=== PATIENT | male | born 1940 | race African-American/Black ===

== ENCOUNTER 2024-06-28 14:37 | Inpatient (IN) ==
[2024-06-28] MEDS: OPTIRAY 320 125ml IV ONE (14:41)
--- NOTE | 2024-06-28 14:44 | Emergency Department Note ---
Impression & Plan Acute hypoxemic respiratory failure, Pneumonia, Elevated troponin, Stroke-like symptom ED Provider Note NAME: BABS [id number] LUCILA AGE: 84 SEX: M : 1940 ARRIVES VIA: Ambulance INFORMANT: EMS and nursing report, prior records ED PROVIDER(S): Lino Coombs MD CHIEF COMPLAINT: Change in mentation, strokelike symptoms MEDICAL DECISION MAKING: Patient presents with the above. Patient is not a TNK candidate as the patient is anticoagulated. The patient is unable to follow basic commands does appear to have strokelike symptoms. Patient was immediately taken to CT. No obvious ICH on Noncon. We did speak with Dr. You with telestroke who stated that he agreed with current management but not a TNK candidate in light of the patient's Eliquis use. Patient was noted to be profoundly hypotensive at the time of arrival and was ordered 2 L of IV fluids along with sepsis protocols. The patient did have a recent amputation of the right great toe. The site does not look acutely infected. Patient was ordered antibiotics plan reviewed the patient's chest x- ray which does show possible asymmetric pulmonary edema versus pneumonia. The patient did have a pneumonia at the time of his admission at [place]. Patient was hypoxic reportedly requiring nonrebreather. Did transition the patient to BiPAP which he would not tolerate and subsequently patient was placed on high flow nasal cannula. Patient was reassessed numerous times. Patient was maintaining his airway. Was able to talk to the patient eventually and when asked the patient states that he was feeling good. Unclear is whether or not he actually felt good or if the patient is confused. The patient's white count was 11 with a hemoglobin of 10. The patient's platelet count was unremarkable. Kidney function unremarkable apart. VBG without signs of hypercarbia. Initial troponin 29.7 calcium low at 8 patient was ordered 1 g for replacement. Procalcitonin is not elevated. Patient's BioFire negative. Initial lactate of 1.2. Patient did have improvement his blood pressures and was tolerating the high flow nasal cannula. I did speak with the on-call hospitalist service Dr. Hernandez our the patient was admitted to medicine service. Critical Care: I have personally spent 95 minutes of critical care time in direct management of this patient. This includes bedside care, interpretation of diagnostic studies, and testing, discussion with consultants, patient, and family members, and other require inpatient management activities. This 95 minutes is in excess of all separately billable procedures. Discussion w/ other healthcare providers: Dr. Gardiner inpatient medicine service Dr. You teleroke neurology Prior /Outside records reviewed: I reviewed part of an admission summary from Dr. Sveerino from June 20. Prior history reported the patient is from [facility] and transferred to [facility] on June 04 as he developed a sore on his foot. Patient was placed on oral antibiotics started on Zosyn upon admission questionable posterior osteomyelitis MRI was on hold due to concerns for pacemaker and unsure as to pacemaker compatibility. Patient was also treated with vancomycin. 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 Pacemaker not compatible with MRI. Deep wound cultures grew out Klebsiella Proteus and Staph epidermidis blood cultures were negative. Patient reportedly had worsening hypoxia and heart failure noted that required high flow nasal cannula. CT angiography of the chest around this time and between June 08 and June 10 noted to have groundglass opacities likely multifocal pneumonia possible pulmonary edema no PEs. Per review of the medication list the patient is on apixaban 5 mg twice daily. Required BiPAP on June 12 Lasix placed on hold transfer to the ICU and required intubation due to concern for worsening respiratory failure and possible aspiration pneumonia. Patient was eventually extubated and transferred to the ICU on June 18. Known prior history of A-fib heart block hypertension hyperlipidemia type 2 diabetes and pacemaker. Per review the patient has 4-5 overall strength at the time of admission poor recall and oriented only to person. Differential diagnosis: Pneumonia, pneumothorax, ICH, infection, dehydration, metabolic abnormality, hypo/hyperglycemia, electrolyte imbalance, anemia, UTI, pneumonia, thyroid dysfunction among others were considered. Diagnostics, as interpreted by me: ECG: V paced rhythm rate of 100., Wide QRS. Significant motion artifact noted. Cardiac monitoring: An order was placed for continuous cardiac monitoring. The monitor shows a rate of 85 with paced rhythm. Patient was placed on pulse oximetry Medical decision rules: None Imaging studies: I informally interpreted the patient's chest x-ray does show possible pneumonia in the right lung with formal report to follow. HPI: Patient presents due to concern for [facility] currently in rehab presented from [facility] reportedly was having change in mentation around 8:00 this morning subsequently developed difficulty with speaking around 1:00 as well as some associated droop and weakness. This was reported per EMS being right sided weakness with a left-sided droop but nursing report had reported the opposite with right-sided droop and left-sided weakness. Patient is unable to answer questions at this time. History is obtained from EMS as well as the patient's admission H&P. It is noted the patient does have Eliquis so not a TNK candidate. Patient does not follow commands. PAST MEDICAL HISTORY: See Below PAST SURGICAL HISTORY: See Below SOCIAL HISTORY: See Below HOME MEDICATIONS: See Below ALLERGIES: See Below VITALS: See Below PHYSICAL EXAMINATION: GENERAL: Mild distress but nontoxic in appearance. EYE EXAM: Normal conjunctiva. PERRL, no anisocoria and EOM's grossly intact w/o pain. OROPHARYNX: Dry mucus membranes, grossly normal dentition. NECK: Trachea midline, no stridor. Supple, no nuchal rigidity, no adenopathy, non-tender. No signs of meningismus. FROM of the neck with good chin to chest and neck extension. LUNGS: Clear to auscultation. Normal chest wall mechanics. HEART: NSR, no MRG. ABDOMEN: Abdomen soft, non-tender, no masses, no rebound or guarding. BACK: No CVA TTP. SKIN: No rashes and no bruising. : Sahni catheter in place, circumcised, no obvious erythema. UPPER EXTREMITIES: Upper extremities are grossly normal. Likely lipoma of the right forearm. LOWER EXTREMITIES: Grossly normal, no edema. NEURO EXAM: Occasionally awake, right-sided droop of the face and unintelligible speech, 5 out of 5 strength in the right upper extremity does not hold the left upper extremity to gravity and does not hold either right lower left lower extremity to gravity. Unable to test for sensation. Past Med/Surg History Problem List (Updated 06/29/24 @ 20:35 by Lino Coombs MD) Stroke-like symptom (Acute) Acute hypoxemic respiratory failure (Acute) Elevated troponin (Acute) Anemia TIA (transient ischemic attack) Pulmonary edema Pneumonia (Acute) Hypoxia Social History Smoking Status: Never smoker Hx Alcohol Use: No Hx Substance Use: No Preferred Language: Luxembourgish Communication Ability: Effective Expressive Therapist Required: No Beliefs That Will Affect Care: None Current Living Situation: Other Current Living Situation Comment: pt was at [facility] but resides at [facility] Feels Safe at Home: Yes Assistive Devices: Walker and Wheelchair Allergies Allergies Allergy/AdvReac Type Severity Reaction Status Date / Time No Known Allergies Allergy Verified 06/28/24 16:11 Home Meds Home Medications Medication Instructions Recorded Confirmed acetaminophen 325 mg tablet 650 mg PO Q4H PRN Pain 06/28/24 06/28/24 (Tylenol) acetaminophen 500 mg tablet 500 mg PO Q4H PRN TEMP >100.5F 06/28/24 06/28/24 (Tylenol Extra Strength) apixaban 5 mg tablet (Eliquis) 5 mg PO BID 06/28/24 06/28/24 bisacodyl 10 mg rectal suppository 10 mg WI DAILY PRN Constipation 06/28/24 06/28/24 calcium carbonate 500 mg PO Q8H PRN Indigestion 06/28/24 06/28/24 docusate sodium 100 mg capsule 100 mg PO BID PRN Constipation 06/28/24 06/28/24 furosemide 40 mg tablet (Lasix) 40 mg PO DAILY 06/28/24 06/28/24 insulin aspart U-100 100 unit/mL 1 sliding scale dose subcut ACHS 06/28/24 06/28/24 subcutaneous solution insulin glargine 100 unit/mL 10 unit subcut HS 06/28/24 06/28/24 subcutaneous solution lisinopril 20 mg tablet 20 mg PO DAILY 06/28/24 06/28/24 ondansetron HCl 4 mg tablet 4 mg PO Q6H PRN NAUSEA/VOMITING 06/28/24 06/28/24 polyethylene glycol 3350 17 17 g PO DAILY 06/28/24 06/28/24 gram/dose oral powder (Miralax) polyethylene glycol 3350 17 17 g PO QDL PRN Constipation 06/28/24 06/28/24 gram/dose oral powder (Miralax) sennosides 8.6 mg tablet (senna) 17.2 mg PO HS 06/28/24 06/28/24 sennosides 8.6 mg-docusate sodium 1 tab-cap PO QDL PRN Constipation 06/28/24 06/28/24 50 mg tablet (Senokot-S) sodium phosphates 19 gram-7 118 ml WI DAILY PRN Constipation 06/28/24 06/28/24 gram/118 mL enema (Fleet Enema) tamsulosin 0.4 mg capsule (Flomax) 0.4 mg PO DAILY 06/28/24 06/28/24 Results & Data (ED) Home Medications Current Medication List: was personally reviewed by me Laboratory Data Attestation: I reviewed the patient's lab results. 06/29/24 06:31 06/29/24 06:31 Lab Results 06/28/24 06/28/24 06/28/24 Range/Units 15:00 16:18 17:04 WBC 11.57 H (4.8-10.8) K/ul RBC 3.77 L (4.70-6.10) M/uL Hgb 10.6 L (14.0-18.0) g/dl Hct 31.9 L (42.0-52.0) % MCV 84.6 (80.0-100.0) fL MCH 28.1 (25.0-34.0) pg MCHC 33.2 (32.0-36.0) g/dL RDW Std Deviation 54.7 H (36.4-46.3) fL RDW Coeff of Asif 18.0 H (11.5-14.5) % Plt Count 256 (130-400) K/uL MPV 9.1 L (9.4-12.4) fL Immature Gran % (Auto) 0.5 % Neut % (Auto) 83.7 % Lymph % (Auto) 10.2 % Izard % (Auto) 4.8 % Eos % (Auto) 0.5 % Baso % (Auto) 0.3 % Neut # (Auto) 9.69 H (1.40-6.50) K/uL Lymph # (Auto) 1.18 L (1.20-3.40) K/uL Izard # (Auto) 0.55 (0.11-0.59) K/uL Eos # (Auto) 0.06 (0.00-0.50) K/uL Baso # (Auto) 0.03 (0.00-0.20) K/uL Immature Gran # (Auto) 0.06 (0.01-0.20) K/uL PT 13.3 H (9.0-12.0) Seconds INR 1.2 H (0.9-1.1) APTT 31 (21-31) Seconds PTT Ratio 1.2 VBG pH 7.38 (7.36-7.41) VBG pCO2 43 (38-50) mmHg VBG pO2 23 mmHg VBG HCO3 25 mmol/L VBG O2 Saturation < 60.0 % VBG Base Excess 0 mEq/L Sodium 134 L (136-145) mmol/L Potassium 4.3 (3.5-5.1) mmol/L Chloride 102 (98-107) mmol/L Carbon Dioxide 27 (21-32) mmol/L Anion Gap 5 (3-11) BUN 26 H (6-23) mg/dl Creatinine 1.07 (0.6-1.4) mg/dl Est Cr Clr Drug Dosing 63.3 ml/min eGFR 68.43 BUN/Creatinine Ratio 24.3 H (10-20) Glucose 194 H (70-99(Fasting)) mg/dl Lactate (0.4-2.0) mmol/L Calcium 8.0 L (8.6-10.3) mg/dl Magnesium 1.8 (1.7-2.4) mg/dl Total Bilirubin 0.9 (0.2-1.0) mg/dl AST 26 (13-39) U/L ALT 24 (7-52) U/L Alkaline Phosphatase 98 (34-104) U/L Troponin I High Sens 29.7 H 31.0 H (0-20) pg/ml C-Reactive Protein 7.86 H (0-0.5) mg/dl Total Protein 6.7 (6.0-8.3) gm/dl Albumin 2.9 L (3.4-5.0) gm/dl Globulin 3.8 (2.5-4.0) gm/dl Albumin/Globulin Ratio 0.8 L (0.9-2) Procalcitonin 0.24 (0-0.5) ng/ml Adenovirus (PCR) Not Detected (NotDetected) B. pertussis DNA (PCR) Not Detected (NotDetected) B.parapertussis DNA PCR Not Detected (NotDetected) Lyme Disease Screen Negative (Negative) C. pneumoniae DNA (PCR) Not Detected (NotDetected) Coronavirus OC43 (PCR) Not Detected (NotDetected) Coronavirus HKU1 (PCR) Not Detected (NotDetected) Coronavirus 229E (PCR) Not Detected (NotDetected) SARS-CoV-2 (PCR) Not Detected (NotDetected) Coronavirus NL63 (PCR) Not Detected (NotDetected) Human Metapneumovir PCR Not Detected (NotDetected) Influenza Type A (PCR) Not Detected (NotDetected) Influenza Type B (PCR) Not Detected (NotDetected) M. pneumoniae (PCR) Not Detected (NotDetected) Parainfluenza 1 (PCR) Not Detected (NotDetected) Parainfluenza 2 (PCR) Not Detected (NotDetected) Parainfluenza 3 (PCR) Not Detected (NotDetected) Parainfluenza 4 (PCR) Not Detected (NotDetected) RSV (PCR) Not Detected (NotDetected) Entero/Rhino (PCR) Not Detected (NotDetected) 06/28/24 Range/Units 19:11 WBC (4.8-10.8) K/ul RBC (4.70-6.10) M/uL Hgb (14.0-18.0) g/dl Hct (42.0-52.0) % MCV (80.0-100.0) fL MCH (25.0-34.0) pg MCHC (32.0-36.0) g/dL RDW Std Deviation (36.4-46.3) fL RDW Coeff of Asif (11.5-14.5) % Plt Count (130-400) K/uL MPV (9.4-12.4) fL Immature Gran % (Auto) % Neut % (Auto) % Lymph % (Auto) % Izard % (Auto) % Eos % (Auto) % Baso % (Auto) % Neut # (Auto) (1.40-6.50) K/uL Lymph # (Auto) (1.20-3.40) K/uL Izard # (Auto) (0.11-0.59) K/uL Eos # (Auto) (0.00-0.50) K/uL Baso # (Auto) (0.00-0.20) K/uL Immature Gran # (Auto) (0.01-0.20) K/uL PT (9.0-12.0) Seconds INR (0.9-1.1) APTT (21-31) Seconds PTT Ratio VBG pH (7.36-7.41) VBG pCO2 (38-50) mmHg VBG pO2 mmHg VBG HCO3 mmol/L VBG O2 Saturation % VBG Base Excess mEq/L Sodium (136-145) mmol/L Potassium (3.5-5.1) mmol/L Chloride (98-107) mmol/L Carbon Dioxide (21-32) mmol/L Anion Gap (3-11) BUN (6-23) mg/dl Creatinine (0.6-1.4) mg/dl Est Cr Clr Drug Dosing ml/min eGFR BUN/Creatinine Ratio (10-20) Glucose (70-99(Fasting)) mg/dl Lactate 1.2 (0.4-2.0) mmol/L Calcium (8.6-10.3) mg/dl Magnesium (1.7-2.4) mg/dl Total Bilirubin (0.2-1.0) mg/dl AST (13-39) U/L ALT (7-52) U/L Alkaline Phosphatase (34-104) U/L Troponin I High Sens (0-20) pg/ml C-Reactive Protein (0-0.5) mg/dl Total Protein (6.0-8.3) gm/dl Albumin (3.4-5.0) gm/dl Globulin (2.5-4.0) gm/dl Albumin/Globulin Ratio (0.9-2) Procalcitonin (0-0.5) ng/ml Adenovirus (PCR) (NotDetected) B. pertussis DNA (PCR) (NotDetected) B.parapertussis DNA PCR (NotDetected) Lyme Disease Screen (Negative) C. pneumoniae DNA (PCR) (NotDetected) Coronavirus OC43 (PCR) (NotDetected) Coronavirus HKU1 (PCR) (NotDetected) Coronavirus 229E (PCR) (NotDetected) SARS-CoV-2 (PCR) (NotDetected) Coronavirus NL63 (PCR) (NotDetected) Human Metapneumovir PCR (NotDetected) Influenza Type A (PCR) (NotDetected) Influenza Type B (PCR) (NotDetected) M. pneumoniae (PCR) (NotDetected) Parainfluenza 1 (PCR) (NotDetected) Parainfluenza 2 (PCR) (NotDetected) Parainfluenza 3 (PCR) (NotDetected) Parainfluenza 4 (PCR) (NotDetected) RSV (PCR) (NotDetected) Entero/Rhino (PCR) (NotDetected) Administered Medications Enoxaparin Sodium (Enoxaparin Inj 40 Mg/0.4 Ml Syr) 40 mg SQ HS CORNELIUS Stop: 07/28/24 21:44 Last Admin: 06/29/24 20:19 Dose: 40 mg Documented By: Admin: 06/28/24 22:33 Dose: 40 mg Documented By: LEXA Furosemide (Furosemide Inj 20 Mg/2 Ml Vial) 20 mg IV [id number] [facility] Stop: 07/28/24 21:44 Last Admin: 06/29/24 16:01 Dose: 20 mg Documented By: Admin: 06/29/24 09:45 Dose: 20 mg Documented By: Admin: 06/28/24 22:34 Dose: 20 mg Documented By: LEXA Piperacillin Sod/Tazobactam Sod (Zosyn) 4.5 gm in 100 mls @ 25 mls/hr IV Q8H [facility]; Protocol Stop: 07/03/24 21:59 Last Infusion: 06/29/24 18:12 Dose: Infused Documented By: Admin: 06/29/24 13:27 Dose: 25 mls/hr Documented By: Infusion: 06/29/24 09:49 Dose: Infused Documented By: Admin: 06/29/24 05:27 Dose: 25 mls/hr Documented By: Infusion: 06/29/24 02:39 Dose: Infused Documented By: Admin: 06/28/24 22:34 Dose: 25 mls/hr Documented By: LEXA Insulin Aspart (Insulin Aspart Per Unit Charge) 0 units SC Q6 CORNELIUS Stop: 07/29/24 00:59 Last Admin: 06/29/24 17:36 Dose: 8 units Documented By: GWENDOLYN Co-signed By: CYNTHIA Admin: 06/29/24 12:30 Dose: 10 units Documented By: GWENDOLYN Co-signed By: DANIELA Admin: 06/29/24 05:36 Dose: Not Given Documented By: Admin: 06/29/24 02:02 Dose: 2 units Documented By: LEXA Co-signed By: HEAVEN Discontinued Medications Aspirin (Aspirin 300 Mg Supp) 300 mg WI ONE ONE Stop: 06/28/24 22:01 Last Admin: 06/28/24 23:06 Dose: 300 mg Documented By: LEXA Sodium Chloride (Nss) 1,000 mls @ 999 mls/hr IV .Q1H1M ONE Stop: 06/28/24 15:35 Last Infusion: 06/28/24 16:13 Dose: Infused Documented By: Admin: 06/28/24 15:27 Dose: 999 mls/hr Documented By: Infusion: 06/28/24 15:27 Dose: Infused Documented By: Admin: 06/28/24 14:55 Dose: 999 mls/hr Documented By: MARGARET Piperacillin Sod/Tazobactam Sod (Zosyn) 4.5 gm in 100 mls @ 200 mls/hr IV NOW ONE; Protocol Stop: 06/28/24 16:33 Last Infusion: 06/28/24 17:17 Dose: Infused Documented By: Admin: 06/28/24 16:12 Dose: 200 mls/hr Documented By: KIM Vancomycin HCl 2,000 mg/ (Sodium Chloride) 540 mls @ 200 mls/hr IV ONE ONE Stop: 06/29/24 00:41 Last Infusion: 06/29/24 01:57 Dose: Infused Documented By: Admin: 06/28/24 22:34 Dose: 200 mls/hr Documented By: LEXA Ioversol (Optiray 320 125ml) 118 ml IV ONCE ONE Stop: 06/28/24 14:42 Last Admin: 06/28/24 14:41 Dose: 118 ml Documented By: GES Discharge Plan Visit Data Chief Complaint: Stroke Alert Stated Complaint: STROKE ALERT ED Provider: Lino Coombs Discharge Problem: Acute hypoxemic respiratory failure, Pneumonia, Elevated troponin, Stroke-like symptom Patient Disposition: Admitted As Inpatient Discharge Instructions Interventions: ED Discharge Assessment Last Done: 06/28/24 21:26 Discharge Problem: Pneumonia Qualifiers: Pneumonia type: due to unspecified organism Laterality: right Lung location: u nspecified part of lung Qualified Code(s): J18.9 - Pneumonia, unspecified organism
[2024-06-28] MEDS: SODIUM CHLORIDE 0.9% 1,000 ML IV ONE (14:55)
--- NOTE | 2024-06-28 14:59 | CT Scan Report ---
CT SCAN OF THE BRAIN WITHOUT IV CONTRAST CLINICAL HISTORY: Neuro deficit, acute stroke suspected. COMPARISON STUDY: None TECHNIQUE: Unenhanced axial CT scan of the brain was performed from the vertex to the skull base. A dose lowering technique was utilized adhering to the principles of ALARA. FINDINGS: This exam is moderately compromised by motion artifact. No acute intracranial hemorrhage, m idline shift or mass effect is present. Ventricular system is unremarkable. There is mild atrophy. Ba sendy cisterns are patent. There are no extra axial collections. There are no findings to suggest acute dural sinus thrombosis or acute territorial infarct by CT. CTA of the head will be reported separate ly. IMPRESSION: No acute intracranial findings. Moderate motion artifact. ACT 112: Negative or not required by law. Electronically signed by: Sotero Oseguera M.D. 06/28/2024 2:56 PM
--- NOTE | 2024-06-28 15:02 | CT Scan Report ---
CT angio head w con CLINICAL HISTORY: 84 years-old Male with neuro deficit, acute stroke suspected. Acute stroke like symptoms COMPARISON STUDY: Head CT of same day TECHNIQUE: Following the IV administration of 118 cc of Optiray, CT angiogram of the brain was perfor med from the skull base to the vertex. Images are reviewed in the axial, sagittal, and coronal planes . 3-D MIPS images are created and assessed. IV contrast was administered without complication. All me asurements were obtained according to NASCET criteria. A dose lowering technique was utilized adherin g to the principles of ALARA. CT DOSE: 2128.03 mGy.cm FINDINGS: CT BRAIN: Dictated separately. Involutional changes with chronic microvascular ischemic disease. CT ANGIOGRAM OF THE BRAIN: The imaged bilateral internal carotid arteries are patent. The bilateral anterior and middle cerebral arteries are also patent. The vertebrobasilar system and posterior cerebral arteries are widely pandya nt. There is no aneurysm, high-grade stenosis, or proximal branch occlusion identified. Dural sinuses appear patent. IMPRESSION: Unremarkable CTA of the head. ACT 112: Negative or not required by law. The above report was generated using voice recognition software. It may contain grammatical, syntax o r spelling errors. Electronically signed by: Benson Kaufman M.D. 06/28/2024 3:00 PM
--- NOTE | 2024-06-28 15:02 | CT Scan Report ---
CT angio neck with con CLINICAL HISTORY: 84 years-old Male with neuro deficit, acute stroke suspected. Acute stroke like symptoms COMPARISON STUDY: CTA head of same day TECHNIQUE: Following the IV administration of 118 of Optiray, CT angiogram of the neck was performed from the aortic arch to the skull base. Images are reviewed in the axial, sagittal, and coronal plane s. 3-D MIPS images are created and assessed. IV contrast was administered without complication. All m easurements were calculated based on NASCET criteria. A dose lowering technique was utilized adherin g to the principles of ALARA. FINDINGS: Cardiomegaly. Left subclavian pacer. Small pleural effusions. Intralobular septal thickenin g with groundglass densities and partially imaged right lung predominant consolidation. Three-vessel morphology of the thoracic aortic arch. Patency of the innominate and imaged subclavian arteries. The common carotid arteries are widely patent. The internal carotid arteries are also paten t. The vertebral arteries appear patent. There is however moderate stenosis involving the left V2 seg ment at the level of C6-C7 secondary to spondylitic spurring of the spine. Unremarkable soft tissues. No acute fracture. Degenerative changes of the cervical spine. Mild mediastinal and hilar lymphadeno suman. IMPRESSION: 1. Unremarkable CTA of the neck. 2. Cardiomegaly with interstitial pulmonary edema and partially imaged right greater than left upper lung opacities suggestive of asymmetric alveolar pulmonary edema versus pneumonia. 3. Small pleural effusions. 4. Nonspecific mediastinal and hilar lymphadenopathy. ACT 112: Negative or not required by law. The above report was generated using voice recognition software. It may contain grammatical, syntax o r spelling errors. Electronically signed by: Benson Kaufman M.D. 06/28/2024 3:00 PM
[2024-06-28 15:19] LABS: Base Excess VBG 0 mEq/L; HCO3 VBG 25 mmol/L; Oxygen Saturation VBG < 60.0 %; PCO2 VBG 43 mmHg (38-50); PO2 VBG 23 mmHg; pH VBG 7.38 (7.36-7.41)
[2024-06-28 15:22] LABS: Basophils # (auto) 0.03 K/uL (0.00-0.20); Basophils % (auto) 0.3 %; Eosinophils # (auto) 0.06 K/uL (0.00-0.50); Eosinophils % (auto) 0.5 %; Hematocrit (blood only) 31.9 % (42.0-52.0); Hemoglobin 10.6 g/dl (14.0-18.0); Immature Granulocytes # (auto) 0.06 K/uL (0.01-0.20); Immature Granulocytes % (auto) 0.5 %; Lymphocytes # (auto) 1.18 K/uL (1.20-3.40); Lymphocytes % (auto) 10.2 %; Mean Corpuscular Hemoglobin 28.1 pg (25.0-34.0); Mean Corpuscular Hgb Conc 33.2 g/dL (32.0-36.0); Mean Corpuscular Volume 84.6 fL (80.0-100.0); Mean Platelet Volume 9.1 fL (9.4-12.4); Monocytes # (auto) 0.55 K/uL (0.11-0.59); Monocytes % (auto) 4.8 %; Neutrophils # (auto) 9.69 K/uL (1.40-6.50); Neutrophils % (auto) 83.7 %; Platelet Count 256 K/uL (130-400); RDW Standard Deviation 54.7 fL (36.4-46.3); Red Blood Count 3.77 M/uL (4.70-6.10); White Blood Count 11.57 K/ul (4.8-10.8)
[2024-06-28 15:46] LABS: Albumin Globulin Ratio 0.8 (0.9-2); Albumin Level 2.9 gm/dl (3.4-5.0); BUN Creatinine Ratio 24.3 (10-20); Bilirubin,Total 0.9 mg/dl (0.2-1.0); Creatinine Clr Calc Pharmacy 63.3 ml/min; Globulin 3.8 gm/dl (2.5-4.0); Magnesium 1.8 mg/dl (1.7-2.4); Potassium 4.3 mmol/L (3.5-5.1); Total Protein 6.7 gm/dl (6.0-8.3)
--- NOTE | 2024-06-28 15:47 | XRay Report ---
XR chest 1V portable CLINICAL HISTORY: Altered mental status. Stroke alert. COMPARISON STUDY: No previous studies for comparison. FINDINGS: Left subclavian pacer is in place. There is no pneumothorax. There are small bilateral pleu ral effusions. Interstitial thickening is noted. Bilateral airspace opacities are greater within the right lung. The heart is moderately enlarged. IMPRESSION: 1. Cardiomegaly with interstitial pulmonary edema and small bilateral pleural effusions. 2. Alveolar opacities, greater within the right lung. The findings favor alveolar pulmonary edema how ever superimposed pneumonia could appear similar. Radiographic follow-up is recommended. ACT 112: Negative or not required by law. Electronically signed by: Sotero Oseguera M.D. 06/28/2024 3:46 PM
[2024-06-28 15:51] LABS: INR 1.2 (0.9-1.1); Partial Thromboplastin Ratio 1.2; Partial Thromboplastin Time 31 Seconds (21-31); Prothrombin Time 13.3 Seconds (9.0-12.0)
[2024-06-28 15:52] LABS: Troponin I High Sensitivity 29.7 pg/ml (0-20)
[2024-06-28] MEDS: PIPERACILLIN/TAZOBACTAM 4.5 GM/100 ML BAG IV ONE (16:12)
[2024-06-28 16:58] LABS: C Reactive Protein 7.86 mg/dl (0-0.5)
[2024-06-28 17:28] LABS: Adenovirus PCR Not Detected (NotDetected); Bordetella parapertussis PCR Not Detected (NotDetected); Bordetella pertussis PCR Not Detected (NotDetected); Chlamydia pneumoniae PCR Not Detected (NotDetected); Coronavirus 229E PCR Not Detected (NotDetected); Coronavirus CoV-2 (COVID19)PCR Not Detected (NotDetected); Coronavirus HKU1 PCR Not Detected (NotDetected); Coronavirus NL63 PCR Not Detected (NotDetected); Coronavirus OC43PCR Not Detected (NotDetected); Human Metapneumovirus PCR Not Detected (NotDetected); Influenza A PCR Not Detected (NotDetected); Influenza B PCR Not Detected (NotDetected); Mycoplasma pneumoniae PCR Not Detected (NotDetected); Parainfluenza Virus 1 PCR Not Detected (NotDetected); Parainfluenza Virus 2 PCR Not Detected (NotDetected); Parainfluenza Virus 3 PCR Not Detected (NotDetected); Parainfluenza Virus 4 PCR Not Detected (NotDetected); Respiratory Syncytial VirusPCR Not Detected (NotDetected); Rhinovirus/Enterovirus PCR Not Detected (NotDetected)
--- NOTE | 2024-06-28 18:07 | CT Scan Report ---
CT CHEST WITHOUT CONTRAST: HISTORY: Shortness of breath TECHNIQUE: CT of the chest was obtained without intravenous contrast. Coronal and sagittal reformats were created. COMPARISON: None FINDINGS: LOWER NECK: Normal thyroid. LYMPH NODES: Mildly prominent mediastinal hilar lymph nodes are nonspecific but are likely reactionary in nature given the pulmonary findings as below. CARDIOVASCULAR: Cardiac size is enlarged. Mild coronary and valvular artery calcifications are noted. No aortic aneurysm. LUNGS: The trachea and central bronchi are widely patent. No focal confluent infiltrates are seen. There are no pulmonary nodules. PLEURA: Right larger than left small pleural fluids. Interstitial pulmonary edema and chronic interstitial changes of the lungs. There are multifocal infiltrates of the lungs with right lung more involved than the left with infiltrates identified all lobes of the lungs. There is no pneumothorax. No suspicious pulmonary nodule is identified however evaluation is limited due to extensive pleural parenchymal process. UPPER ABDOMEN: No acute findings. OSSEOUS STRUCTURES: No acute findings IMPRESSION: Multifocal pneumonia superimposed on CHF. Electronically signed by Virgilio Ramos 06-28-2024 6:06 PM
--- NOTE | 2024-06-28 20:05 | History & Physical Report ---
Date of Service June 28, 2024 Assessment & Plan (1) Hypoxia: (2) Pneumonia: (3) Pulmonary edema: (4) TIA (transient ischemic attack): (5) Anemia: (6) Elevated troponin: Plan hypoxiaetiology was not entirely clearobtained noncontrast chest CT which showed that it was in fact both consistent with pneumonia and pulmonary edemasee below. Stabilize hypoxia with oxygen as needed. Fortunately VBG did not show any findings consistent with a respiratory acidosis. Continue suppo rtive care. Pneumoniagiven his unresponsive state and fairly severe hypoxia, managing for now with Vanco and Zosyn to cover for MRSA and resistant gram-negative pathogens. MRSA nares has been orderedif it is negative vancomycin can be discontinued. Depending on his progress may be able to downgrade Zosyn fairly quickly, but at this point his margin of air is extremely narrow. Oxygen/suppor tive care as well. Pulmonary edemasuspect CHF but no known baseline cardiac history that I am able to obtain. Check echocardiogram. His blood pressures were somewhat on the soft side earlier so I had to be a bit gentle with diuretics that I have orderedordered at 20 mgbut in discussion with night coverage if his hypoxia were to become more refractory or worse, his blood pressures are improving to where higher dose of Lasix could be entertained. Facial droop/arm weaknesswhile obviously neuroexam is extremely limited this seems to have resolved. Right now with his inability to take p.o. and not able to get an MRI (his physician at rehab noted this to be the case because of his pacemaker) we are somewhat limited with further workup. Echocardiogrambut he is already anticoagulated on Eliquis (for reasons uncertain) carotid angiography was reassuringno carotid lesions; intracranial atherosclerosis certainly would be the most likely given what sounds to have been a small vessel TIA type appearance. Check lipids and A1c. Aspirin AZ for now. Once he is able to take p.o. would entertain aspirin, moderate to high intensity statin, and manage sugar if necessary. Mild elevation in troponinalmost certainly mild demand ischemia due to hypoxia. No evidence of ACS in his presentation. EKG is essentially unreadable but his troponin did not show any significant rise across 2 checks. DVT prophylaxisLovenox anemiauncertain chronicity or etiology. Follow. Signed out to overnight coverage. History of Present Illness Chief Complaint: unresponsive, hypoxic Primary Care Provider: SCI Valentin no HPI or review of systems is obtainable from patient, history obtained from his physician at rehab, as well as from the ER physician. Physician at rehab notes that he had been sent there after a toe amputation in [place]. Patient was recovering fairly well did have a degree of dyspnea and findings including chest x-ray consistent with CHFshe was giving him diuresis, patient was showing slow but steady improvement, and then today he was less responsive with a facial droop and arm weaknesswith that he was sent to the ER, on arrival he no longer showed focal neurodeficits, but at the same time he became progressively more hypoxic eventually stabilizing on 50 L / 60% FiO2 high flow nasal cannula. Patient himself responds somewhat to voice and stimuli grunts a little but is not really at all communicative or aware. Allergies Allergy/AdvReac Type Severity Reaction Status Date / Time No Known Allergies Allergy Verified 06/28/24 16:11 Home Medications Medication Instructions Recorded Confirmed Type acetaminophen 325 mg tablet 650 mg PO Q4H PRN Pain 06/28/24 06/28/24 History (Tylenol) acetaminophen 500 mg tablet 500 mg PO Q4H PRN TEMP >100.5F 06/28/24 06/28/24 History (Tylenol Extra Strength) apixaban 5 mg tablet (Eliquis) 5 mg PO BID 06/28/24 06/28/24 History bisacodyl 10 mg rectal suppository 10 mg AZ DAILY PRN Constipation 06/28/24 06/28/24 History calcium carbonate 500 mg PO Q8H PRN Indigestion 06/28/24 06/28/24 History docusate sodium 100 mg capsule 100 mg PO BID PRN Constipation 06/28/24 06/28/24 History furosemide 40 mg tablet (Lasix) 40 mg PO DAILY 06/28/24 06/28/24 History insulin aspart U-100 100 unit/mL 1 sliding scale dose subcut ACHS 06/28/24 06/28/24 History subcutaneous solution insulin glargine 100 unit/mL 10 unit subcut HS 06/28/24 06/28/24 History subcutaneous solution lisinopril 20 mg tablet 20 mg PO DAILY 06/28/24 06/28/24 History ondansetron HCl 4 mg tablet 4 mg PO Q6H PRN NAUSEA/VOMITING 06/28/24 06/28/24 History polyethylene glycol 3350 17 17 g PO DAILY 06/28/24 06/28/24 History gram/dose oral powder (Miralax) polyethylene glycol 3350 17 17 g PO QDL PRN Constipation 06/28/24 06/28/24 History gram/dose oral powder (Miralax) sennosides 8.6 mg tablet (senna) 17.2 mg PO HS 06/28/24 06/28/24 History sennosides 8.6 mg-docusate sodium 1 tab-cap PO QDL PRN Constipation 06/28/24 06/28/24 History 50 mg tablet (Senokot-S) sodium phosphates 19 gram-7 118 ml AZ DAILY PRN Constipation 06/28/24 06/28/24 History gram/118 mL enema (Fleet Enema) tamsulosin 0.4 mg capsule (Flomax) 0.4 mg PO DAILY 06/28/24 06/28/24 History Past Med/Surg History Problem List Elevated troponin Anemia TIA (transient ischemic attack) Pulmonary edema Pneumonia Hypoxia Social History Smoking Status: Unknown if ever smoked Review of Systems Review of Systems: All systems reviewed & are unremarkable except as noted in HPI & below Physical Exam Physical Exam: In general he is laying in bed appearing mildly restless and somewhat incoherent but on his first exam he showed a mild degree of respiratory distress on follow-up exam no respiratory distress just restlessness. HEENT normocephalic atraumatic mucous membranes moist. Cardio somewhat distant no rubs murmurs or gallops, lungs show coarse rhonchi throughout. No wheezing no accessory muscle use no tachypnea. Abdomen is soft nondistended no notable tenderness no rigidity. Extremities are without cyanosis or clubbing chronic venous stasis changes his toe amputation site appears to be overall clean dry and intact without any tracking erythema. Neuroexam is extremely difficult due to his inability to cooperate restlessness generally minimally responsive state and the fact that he is handcuffed on his left arm and both ankles and the guard does not have the keybut with these limitations I do not see any lateralizing signs or unilateral weakness, he has equal muscle tone bilaterally and I do not see a facial droop. Skin without rashes pallor or icterus. Labs and diagnostics noted Results & Data Results & Data Vital Signs (Past 12 Hours) Vital Signs Temp Pulse Pulse Resp BP BP Pulse Ox 06/28/24 19:30 81 20 154/95 H 99 06/28/24 18:31 24 129/88 06/28/24 18:31 28 H 129/88 06/28/24 18:31 24 129/88 06/28/24 18:31 129/88 06/28/24 18:31 129/88 06/28/24 18:31 129/88 06/28/24 18:31 129/88 06/28/24 18:31 129/88 06/28/24 18:31 129/88 06/28/24 18:30 88 19 98 06/28/24 18:00 87 28 H 99 06/28/24 18:00 130/82 06/28/24 18:00 130/82 06/28/24 18:00 130/82 06/28/24 18:00 130/82 06/28/24 18:00 130/82 06/28/24 18:00 130/82 06/28/24 18:00 130/82 06/28/24 18:00 130/82 06/28/24 18:00 130/82 06/28/24 18:00 130/82 06/28/24 18:00 130/82 06/28/24 18:00 130/82 06/28/24 18:00 130/82 06/28/24 18:00 130/82 06/28/24 18:00 130/82 06/28/24 18:00 130/82 06/28/24 17:55 125/86 06/28/24 17:55 125/86 06/28/24 17:55 125/86 06/28/24 17:55 125/86 06/28/24 17:51 78 21 98 06/28/24 17:39 101 H 21 99 06/28/24 17:12 76 19 100 06/28/24 17:11 118/83 06/28/24 17:11 118/83 06/28/24 17:11 118/83 06/28/24 17:09 96 H 22 100 06/28/24 17:00 126/74 06/28/24 17:00 126/74 06/28/24 17:00 126/74 06/28/24 16:57 82 17 99 06/28/24 16:57 106 H 30 H 98 06/28/24 16:54 102 H 21 100 06/28/24 16:50 131/81 06/28/24 16:50 131/81 06/28/24 16:50 131/81 06/28/24 16:50 131/81 06/28/24 16:50 131/81 06/28/24 16:50 131/81 06/28/24 16:45 84 26 H 98 06/28/24 16:41 92/69 L 06/28/24 16:41 92/69 L 06/28/24 16:41 92/69 L 06/28/24 16:30 146/77 H 06/28/24 16:30 146/77 H 06/28/24 16:30 146/77 H 06/28/24 16:30 146/77 H 06/28/24 16:30 146/77 H 06/28/24 16:27 25 H 100 06/28/24 16:21 98 H 23 06/28/24 16:21 129/80 06/28/24 16:21 129/80 06/28/24 16:21 129/80 06/28/24 16:18 85 28 H 06/28/24 16:11 105/88 06/28/24 16:11 105/88 06/28/24 16:03 106 H 25 H 98 06/28/24 16:00 154/115 H 06/28/24 16:00 154/115 H 06/28/24 15:55 79 06/28/24 15:48 31 H 88 L 06/28/24 15:47 142/97 H 06/28/24 15:45 113 H 34 H 06/28/24 15:36 32 H 06/28/24 15:31 150/95 H 06/28/24 15:30 116 H 36 H 69 L 06/28/24 15:21 75 22 06/28/24 15:15 74 23 99 06/28/24 15:01 81/33 L 06/28/24 15:01 81/33 L 06/28/24 15:01 81/33 L 06/28/24 15:01 81/33 L 06/28/24 15:01 81/33 L 06/28/24 15:01 81/33 L 06/28/24 15:01 81/33 L 06/28/24 14:59 120/81 06/28/24 14:56 99.0 F 79 28 H 81/33 L 97 O2 Del Method O2 Flow Rate FiO2 06/28/24 19:30 06/28/24 18:31 06/28/24 18:31 06/28/24 18:31 06/28/24 18:31 06/28/24 18:31 06/28/24 18:31 06/28/24 18:31 06/28/24 18:31 06/28/24 18:31 06/28/24 18:30 06/28/24 18:00 06/28/24 18:00 06/28/24 18:00 06/28/24 18:00 06/28/24 18:00 06/28/24 18:00 06/28/24 18:00 06/28/24 18:00 06/28/24 18:00 06/28/24 18:00 06/28/24 18:00 06/28/24 18:00 06/28/24 18:00 06/28/24 18:00 06/28/24 18:00 06/28/24 18:00 06/28/24 18:00 06/28/24 17:55 06/28/24 17:55 06/28/24 17:55 06/28/24 17:55 06/28/24 17:51 06/28/24 17:39 06/28/24 17:12 06/28/24 17:11 06/28/24 17:11 06/28/24 17:11 06/28/24 17:09 06/28/24 17:00 06/28/24 17:00 06/28/24 17:00 06/28/24 16:57 06/28/24 16:57 High Flow Nasal Cannula 50 60 06/28/24 16:54 06/28/24 16:50 06/28/24 16:50 06/28/24 16:50 06/28/24 16:50 06/28/24 16:50 06/28/24 16:50 06/28/24 16:45 06/28/24 16:41 06/28/24 16:41 06/28/24 16:41 06/28/24 16:30 06/28/24 16:30 06/28/24 16:30 06/28/24 16:30 06/28/24 16:30 06/28/24 16:27 06/28/24 16:21 06/28/24 16:21 06/28/24 16:21 06/28/24 16:21 06/28/24 16:18 06/28/24 16:11 06/28/24 16:11 06/28/24 16:03 06/28/24 16:00 06/28/24 16:00 06/28/24 15:55 06/28/24 15:48 06/28/24 15:47 06/28/24 15:45 06/28/24 15:36 06/28/24 15:31 06/28/24 15:30 06/28/24 15:21 06/28/24 15:15 06/28/24 15:01 06/28/24 15:01 06/28/24 15:01 06/28/24 15:01 06/28/24 15:01 06/28/24 15:01 06/28/24 15:01 06/28/24 14:59 06/28/24 14:56 Room Air Code Status & VTE Plan VTE Prophylaxis Plan VTE Prophylaxis will be ordered: Yes PG Care Time/CCT Total # of Minutes Spent Total Time Spent with Patient: Total time spent is greater than 50% in coordination of care (as documented) at patient's floor/unit and/or counseling patient: Coding Level of Care Code 18432 INT INP/OBS CARE 3/75MIN Diagnoses Hypoxia R09.02 Pneumonia J18.9 Pulmonary edema J81.1 TIA (transient ischemic attack) G45.9 Anemia D64.9 Elevated troponin R79.89
[2024-06-28] MEDS ORDERED: PHARMACIST DISCHARGE MED REC CONSULT PRN (20:09)
[2024-06-28] MEDS ORDERED: VANCOMYCIN CONSULT ACTIVE PRN (21:36)
[2024-06-28] MEDS ORDERED: ONDANSETRON INJ 2 MG/ML 2 ML VIAL IV PRN (21:36)
[2024-06-28] MEDS: ENOXAPARIN INJ 40 MG/0.4 ML SYR SQ SCH (22:33)
[2024-06-28] MEDS: PIPERACILLIN/TAZOBACTAM 4.5 GM/100 ML BAG IV SCH (22:34)
[2024-06-28] MEDS: FUROSEMIDE INJ 20 MG/2 ML VIAL IV SCH (22:34)
[2024-06-28] MEDS: VANCOMYCIN HCL 2,000 MG in SODIUM CHLORIDE 0.9% 500 ML IV ONE (22:34)
[2024-06-28] MEDS: ASPIRIN 300 MG SUPP PR ONE (23:06)
[2024-06-29] MEDS ORDERED: GLUCAGON FOR INJ 1 MG VIAL SQ PRN (00:44)
[2024-06-29] MEDS ORDERED: CARBOHYDRATES FOR HYPOGLYCEMIA PO PRN (00:44)
[2024-06-29] MEDS ORDERED: GLUCOSE 10 TAB/TUBE PO PRN (00:44)
[2024-06-29] MEDS ORDERED: DEXTROSE 50% 50 ML SYRINGE IV PRN (00:44)
[2024-06-29] MEDS ORDERED: GLUCOSE 40% GEL 15 GM TUBE PO PRN (00:44)
[2024-06-29] MEDS: INSULIN ASPART PER UNIT CHARGE SC SCH (02:02)
[2024-06-29 07:39] LABS: BUN Creatinine Ratio 18.6 (10-20); Calcium 7.8 mg/dl (8.6-10.3); Chol HDL Ratio 3.2 (0-5); Creatinine Clr Calc Pharmacy 62.2 ml/min; Potassium 3.8 mmol/L (3.5-5.1)
[2024-06-29 07:40] LABS: Basophils # (auto) 0.02 K/uL (0.00-0.20); Basophils % (auto) 0.2 %; Eosinophils # (auto) 0.14 K/uL (0.00-0.50); Eosinophils % (auto) 1.7 %; Hematocrit (blood only) 28.1 % (42.0-52.0); Hemoglobin 9.3 g/dl (14.0-18.0); Immature Granulocytes # (auto) 0.03 K/uL (0.01-0.20); Immature Granulocytes % (auto) 0.4 %; Lymphocytes # (auto) 1.09 K/uL (1.20-3.40); Mean Corpuscular Hemoglobin 28.4 pg (25.0-34.0); Mean Corpuscular Hgb Conc 33.1 g/dL (32.0-36.0); Mean Corpuscular Volume 85.7 fL (80.0-100.0); Mean Platelet Volume 9.6 fL (9.4-12.4); Monocytes # (auto) 0.57 K/uL (0.11-0.59); Monocytes % (auto) 6.8 %; Neutrophils # (auto) 6.54 K/uL (1.40-6.50); Neutrophils % (auto) 77.9 %; Platelet Count 227 K/uL (130-400); RDW Coefficient of Variation 17.8 % (11.5-14.5); RDW Standard Deviation 54.3 fL (36.4-46.3); Red Blood Count 3.28 M/uL (4.70-6.10); White Blood Count 8.39 K/ul (4.8-10.8)
--- NOTE | 2024-06-29 09:30 | Hospitalist Progress Note ---
Date of Service June 29, 2024 Assessment & Plan (1) Hypoxia: (2) Pneumonia: (3) Pulmonary edema: (4) TIA (transient ischemic attack): (5) Anemia: (6) Elevated troponin: Plan 84 yo M with PMHx of HTN, DM II, BPH at rehab after toe amputation in [place] was sent to [facility] on 06/28/24 for the evaluation of facial droop and arm weakness. Recently, while at rehab, pt had some dyspnea, with CXR consistent with CHF. He was being diuresed and doing well until the development of neurologic symptoms. On arrival to [facility], his neurological symptoms had resolved but he was found to have worsening hypoxia requiring HFNC 50L / 60%. Pt himself responds somewhat to voice and stimuli, grunts a little, but is not really at all communicative or aware. #Hypoxia - unclear etiology - NC CT shows pneumonia and pulmonary edema - VBG without evidence of respiratory acidosis - was on HFNC, titrated down to 3L #Pneumonia - given significant hypoxia and diminished mental state, he was started on Vanc / Zosyn - procal 0.24 (06/28/24) - MRSA neg, Vanc d/c-ed - check biofire #Pulmonary edema - given no baseline cardiac history, ECHO ordered - ECHO (06/29/24): LVEF: 55%, possible hypokinesis of the basal inferolateral wall (not fully visualized)mild concentric LVH, severe left atrial dilatin, mild pulm HTN, RVSP 39 mmHg - cont IV lasix - monitor renal function #Right foot wound - will check XR right foot to evaluate further for infection - wound consulted - cont zosyn for now #Facial droop / arm weakness - unable to obtain MRI due to PPM (no further information available about his PPM) - ECHO pending - aspirin CO - YARD 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 Follow. Admission and Anticipated Discharge Date Admission Date: June 28, 2024 Subjective no acute events overnight currently complaining of being tired Review of Systems Review of Systems: comprehensive ROS neg Physical Exam Physical Exam: Gen: no acute distress HEENT: NC/AT, keeps his eyes closed during the entire visit Lungs: scattered crackles throughout lung but most pronounced at the bases CVS: s1s2nl, RRR Abd: soft, NT, nl bowel sounds : +allison Ext: right toe amputation Neuro: awake, no overt deficits noted, oriented to person, knew he was in hospital, but does not answer questions consistently Results & Data Results & Data Vital Signs (Past 12 Hours) Vital Signs Temp Pulse Pulse Pulse Resp BP Pulse Ox 06/29/24 07:02 37.1 C 71 20 98/61 L 97 06/29/24 02:46 36.7 C 70 20 104/59 L 97 06/29/24 01:30 06/29/24 00:40 84 18 132/60 100 06/28/24 22:15 87 06/28/24 21:48 78 22 98 06/28/24 21:36 06/28/24 21:36 37.3 C 84 20 139/76 99 Pulse Ox O2 Del Method O2 Del Method O2 Flow Rate O2 Flow Rate 06/29/24 07:02 Oxymask 6.0 06/29/24 02:46 Oxymask 6 06/29/24 01:30 99 Oxymask 6 06/29/24 00:40 Oxymask 6 06/28/24 22:15 06/28/24 21:48 Oxymask 6 06/28/24 21:36 Oxymask 6 06/28/24 21:36 Oxymask 8 PG Care Time/CCT Total # of Minutes Spent Total Time Spent with Patient: Total time spent is greater than 50% in coordination of care (as documented) at patient's floor/unit and/or counseling patient: Coding Level of Care Code 73981 SUB INP/OBS CARE 2/35MIN Diagnoses Hypoxia R09.02 Pneumonia J18.9 Pulmonary edema J81.1 TIA (transient ischemic attack) G45.9 Anemia D64.9 Elevated troponin R79.89
[2024-06-29 09:41] LABS: Estimated Average Glucose 206 mg/dl; Hemoglobin A1C 8.8 % (4.5-5.6)
--- NOTE | 2024-06-29 11:44 | XCELERA ---
[id number] [id number]
--- NOTE | 2024-06-29 14:11 | XRay Report ---
Study: Right foot 2 views History: Amputation Comparison: None Findings: There is no acute fracture or dislocation. Amputation with a resection at the proximal diaphysis of the first metatarsal. The overlying soft tissues appear grossly unremarkable. Evidence of resection or erosion at the tuft of the distal phalanx of the third digit. Alignment is anatomic. Joint spaces are well maintained. There is no joint effusion or significant soft tissue swelling. Impression: Amputation changes at the great toe. Distal third toe changes as above. Electronically signed by Chris Roach 06-29-2024 2:10 PM
[2024-06-29 15:08] LABS: Adenovirus PCR Not Detected (NotDetected); Bordetella parapertussis PCR Not Detected (NotDetected); Bordetella pertussis PCR Not Detected (NotDetected); Chlamydia pneumoniae PCR Not Detected (NotDetected); Coronavirus 229E PCR Not Detected (NotDetected); Coronavirus CoV-2 (COVID19)PCR Not Detected (NotDetected); Coronavirus HKU1 PCR Not Detected (NotDetected); Coronavirus NL63 PCR Not Detected (NotDetected); Coronavirus OC43PCR Not Detected (NotDetected); Human Metapneumovirus PCR Not Detected (NotDetected); Influenza A PCR Not Detected (NotDetected); Influenza B PCR Not Detected (NotDetected); Mycoplasma pneumoniae PCR Not Detected (NotDetected); Parainfluenza Virus 1 PCR Not Detected (NotDetected); Parainfluenza Virus 2 PCR Not Detected (NotDetected); Parainfluenza Virus 3 PCR Not Detected (NotDetected); Parainfluenza Virus 4 PCR Not Detected (NotDetected); Respiratory Syncytial VirusPCR Not Detected (NotDetected); Rhinovirus/Enterovirus PCR Not Detected (NotDetected)
[2024-06-30 07:02] LABS: Hematocrit (blood only) 30.3 % (42.0-52.0); Hemoglobin 10.1 g/dl (14.0-18.0); Mean Corpuscular Hemoglobin 28.5 pg (25.0-34.0); Mean Corpuscular Hgb Conc 33.3 g/dL (32.0-36.0); Mean Corpuscular Volume 85.4 fL (80.0-100.0); Mean Platelet Volume 9.5 fL (9.4-12.4); Platelet Count 247 K/uL (130-400); RDW Coefficient of Variation 17.2 % (11.5-14.5); RDW Standard Deviation 52.4 fL (36.4-46.3); Red Blood Count 3.55 M/uL (4.70-6.10)
[2024-06-30 07:23] LABS: BUN Creatinine Ratio 19.8 (10-20); Calcium 8.1 mg/dl (8.6-10.3); Creatinine Clr Calc Pharmacy 62.9 ml/min; Magnesium 1.7 mg/dl (1.7-2.4); Phosphorus 3.2 mg/dl (2.5-4.9)
[2024-06-30] MEDS: INSULIN ASPART PER UNIT CHARGE SC SCH (08:15)
--- NOTE | 2024-06-30 10:12 | Hospitalist Progress Note ---
Date of Service June 30, 2024 Assessment & Plan (1) Hypoxia: (2) Pneumonia: (3) Pulmonary edema: (4) TIA (transient ischemic attack): (5) Anemia: (6) Elevated troponin: Plan 84 yo M with PMHx of HTN, DM II, BPH at rehab after toe amputation in [place] was sent to [facility] on 06/28/24 for the evaluation of facial droop and arm weakness. Recently, while at rehab, pt had some dyspnea, with CXR consistent with CHF. He was being diuresed and doing well until the development of neurologic symptoms. On arrival to [facility], his neurological symptoms had resolved but he was found to have worsening hypoxia requiring HFNC 50L / 60%. Pt himself responds somewhat to voice and stimuli, grunts a little, but is not really at all communicative or aware. #Hypoxia - NC CT shows pneumonia and pulmonary edema - VBG without evidence of respiratory acidosis - was on HFNC, titrated down to 3L, cont to wean #Pneumonia - given significant hypoxia and diminished mental state, he was started on Vanc / Zosyn - procal 0.24 (06/28/24) - MRSA neg, Vanc d/c-ed - biofire negative #Pulmonary edema - given no baseline cardiac history, ECHO ordered - ECHO (06/29/24): LVEF: 55%, possible hypokinesis of the basal inferolateral wall (not fully visualized)mild concentric LVH, severe left atrial dilation, mild pulm HTN, RVSP 39 mmHg - cont IV lasix , creatinine remaining stable - monitor renal function #Right foot wound - XR showing post surgical changes vs erosion - wound consulted - will request podiatry evaluation - cont zosyn for now #Facial droop resolved / left arm weakness - pt states he has had left arm weakness for a long time - unable to obtain MRI due to PPM (no further information available about his PPM) - initial CT head without acute intracranial abnormalities, repeat NCCT head also neg - aspirin ID - [employer]IST eval recs regular texture diet with aspiration precautions as indicated - PT / OT eval pending - Lipid panel #DM II - A1c: 8.8 - cont sliding scale, BG stable #HTN - BP meds on hold - cont IV lasix #h/o PPM - pt states he got it done in [place] - pt last at [place], will request medical records #Mild elevation in troponin - demand in the setting of hypoxia - no evidence of ACS in his presentation DVT prophylaxisLovenox anemiauncertain chronicity or etiology, currently stable. Follow. Admission and Anticipated Discharge Date Admission Date: June 28, 2024 Subjective no acute events overnight currently complaining of being tired Review of Systems Review of Systems: comprehensive ROS neg Physical Exam Physical Exam: Gen: no acute distress HEENT: NC/AT, keeps his eyes closed during the entire visit Lungs: scattered crackles throughout lung but most pronounced at the bases CVS: s1s2nl, RRR Abd: soft, NT, nl bowel sounds : +allison Ext: right toe amputation Neuro: awake, no overt deficits noted, oriented to person, knew he was in hospital, but does not answer questions consistently Results & Data Results & Data Vital Signs (Past 12 Hours) Vital Signs Temp Pulse Pulse Resp BP Pulse Ox O2 Del Method 06/30/24 07:00 37.1 C 62 18 110/71 94 Nasal Cannula 06/30/24 06:27 65 06/30/24 02:27 36.5 C 77 18 126/73 94 Nasal Cannula 06/29/24 22:10 37.2 C 76 20 117/79 96 Nasal Cannula O2 Flow Rate 06/30/24 07:00 3.0 06/30/24 06:27 06/30/24 02:27 3 06/29/24 22:10 3 PG Care Time/CCT Total # of Minutes Spent Total Time Spent with Patient: Total time spent is greater than 50% in coordination of care (as documented) at patient's floor/unit and/or counseling patient: Coding Level of Care Code 57382 SUB INP/OBS CARE 2/35MIN Diagnoses Hypoxia R09.02 Pneumonia J18.9 Laterality: right Lung location: unspecified part of lung Pneumonia type: due to unspecified organism Pulmonary edema J81.1 TIA (transient ischemic attack) G45.9 Anemia D64.9 Elevated troponin R79.89 (2) Pneumonia Laterality: right Lung location: unspecified part of lung Pneumonia type: due to unspecified organism Qualified Code(s): J18.9 - Pneumonia, unspecified organism
--- NOTE | 2024-06-30 11:05 | CT Scan Report ---
CT head/brain wo con CLINICAL HISTORY: 84 years-old Male with stroke-like sxs, unable to obtain MRI. Acute stroke like sy mptoms TECHNIQUE: Multiple axial CT images of the head were obtained without contrast. A dose lowering tech nique was utilized adhering to the principles of ALARA. CT DOSE: 1100.35 mGy.cm COMPARISON: 06/28/2024 FINDINGS: No acute intracranial hemorrhage, midline shift, intracranial mass, hydrocephalus, territorial ischem ia or abnormal extra-axial collection. 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 Senescent calcifications of the basal ganglia. The calvarium is intact. The paranasal sinuses, mastoid air cells, and middle ear cavities are clear . IMPRESSION: No acute intracranial abnormality. ACT 112: Negative or not required by law. The above report was generated using voice recognition software. It may contain grammatical, syntax o r spelling errors. Electronically signed by: Benson Kaufman M.D. 06/30/2024 11:03 AM
--- NOTE | 2024-06-30 12:25 | Electrocardiogram Report ---
Test Reason : Blood Pressure : */* mmHG Vent. Rate : 132 BPM Atrial Rate : 170 BPM P-R Int : * ms QRS Dur : 132 ms QT Int : 390 ms P-R-T Axes : * -71 148 degrees QTcB Int : 577 ms Poor data quality, interpretation may be adversely affected Ventricular-paced rhythm Abnormal ECG No previous ECGs available Confirmed by Oumar Bañuelos ([id number]) on 06/30/2024 12:25:12 PM Referred By: Valentin JACOBO Confirmed By: Oumar Bañuelos
[2024-07-01 06:57] LABS: Calcium 7.7 mg/dl (8.6-10.3); Creatinine Clr Calc Pharmacy 49.9 ml/min; Magnesium 1.7 mg/dl (1.7-2.4); Phosphorus 3.2 mg/dl (2.5-4.9); Potassium 3.4 mmol/L (3.5-5.1)
[2024-07-01 06:59] LABS: Hematocrit (blood only) 30.2 % (42.0-52.0); Hemoglobin 10.1 g/dl (14.0-18.0); Mean Corpuscular Hemoglobin 28.3 pg (25.0-34.0); Mean Corpuscular Hgb Conc 33.4 g/dL (32.0-36.0); Mean Corpuscular Volume 84.6 fL (80.0-100.0); Mean Platelet Volume 9.9 fL (9.4-12.4); Platelet Count 257 K/uL (130-400); RDW Coefficient of Variation 17.6 % (11.5-14.5); RDW Standard Deviation 52.8 fL (36.4-46.3); Red Blood Count 3.57 M/uL (4.70-6.10); White Blood Count 7.52 K/ul (4.8-10.8)
--- NOTE | 2024-07-01 09:38 | Hospitalist Progress Note ---
Date of Service July 01, 2024 Assessment & Plan (1) Hypoxia: (2) Pneumonia: (3) Pulmonary edema: (4) TIA (transient ischemic attack): (5) Anemia: (6) Elevated troponin: Plan 84 yo M with PMHx of HTN, DM II, BPH at rehab after toe amputation in [place] was sent to [facility] on 06/28/24 for the evaluation of facial droop and arm weakness. Recently, while at rehab, pt had some dyspnea, with CXR consistent with CHF. He was being diuresed and doing well until the development of neurologic symptoms. On arrival to [facility], his neurological symptoms had resolved but he was found to have worsening hypoxia requiring HFNC 50L / 60%. Pt himself responds somewhat to voice and stimuli, grunts a little, but is not really at all communicative or aware. #Hypoxia - NC CT shows pneumonia and pulmonary edema - VBG without evidence of respiratory acidosis - was on HFNC, titrated down to 3L, cont to wean - For 7 patient is on room air #Pneumonia - given significant hypoxia and diminished mental state, he was started on Vanc / Zosyn - procal 0.24 (06/28/24) - MRSA neg, Vanc d/c-ed - biofire negative #Pulmonary edema - given no baseline cardiac history, ECHO ordered - ECHO (06/29/24): LVEF: 55%, possible hypokinesis of the basal inferolateral wall (not fully visualized)mild concentric LVH, severe left atrial dilation, mild pulm HTN, RVSP 39 mmHg - cont IV lasix , creatinine remaining stable - monitor renal function #Right foot wound - XR showing post surgical changes vs erosion - wound consulted - will request podiatry evaluation - cont zosyn for now - Appreciate podiatry input #Facial droop resolved / left arm weakness - pt states he has had left arm weakness for a long time - unable to obtain MRI due to PPM (no further information available about his PPM) - initial CT head without acute intracranial abnormalities, repeat NCCT head also neg - aspirin VT - [employer]IST eval recs regular texture diet with aspiration precautions as indicated - PT / OT eval pending - Lipid panel - Pending pacemaker information pending MRI - Consulted neurology Dr. Rubio who will see the patient on 07/02 - Patient will need to go for rehab for stroke #DM II - A1c: 8.8 - cont sliding scale, BG stable #HTN - BP meds on hold - cont IV lasix #h/o PPM - pt states he got it done in [place] - pt last at [place], will request medical records #Mild elevation in troponin - demand in the setting of hypoxia - no evidence of ACS in his presentation DVT prophylaxisLovenox anemiauncertain chronicity or etiology, currently stable. Follow. Admission and Anticipated Discharge Date Admission Date: June 28, 2024 Subjective no acute events overnight currently complaining of being tired 07/01 : Patient was seen by podiatry recommendations are in place patient will need Betadine dressing in the rehab, He is seems slightly delayed and confused but he is liking ice cream according to nursing staff NIH score is [address] angio and CT head have been done MRI was pending because of information regarding his pacemaker was not available Case discussed with Dr. Rubio from neurology who will see him tomorrow pending MRI pending clearance whether with that pacemaker patient cannot get an MRI Review of Systems Review of Systems: Patient denies any chest pain shortness of breath abdominal pain or discomfort Physical Exam Physical Exam: Gen: no acute distress HEENT: NC/AT, keeps his eyes closed during the entire visit Lungs: scattered crackles throughout lung but most pronounced at the bases CVS: s1s2nl, RRR Abd: soft, NT, nl bowel sounds : +allison Ext: right toe amputation Neuro: awake, no overt deficits noted, oriented to person, knew he was in hospital, but does not answer questions consistently Results & Data Results & Data Vital Signs (Past 12 Hours) Vital Signs Temp Pulse Pulse Resp BP BP Pulse Ox 07/01/24 07:00 36.5 C 90 18 122/78 97 07/01/24 03:00 36.7 C 90 19 125/86 96 06/30/24 22:32 36.7 C 68 19 122/63 96 06/30/24 22:23 79 O2 Del Method O2 Flow Rate 07/01/24 07:00 Nasal Cannula 2 07/01/24 03:00 Nasal Cannula 2 06/30/24 22:32 Nasal Cannula 2 06/30/24 22:23 PG Care Time/CCT Total # of Minutes Spent Total Time Spent with Patient: Total time spent is greater than 50% in coordination of care (as documented) at patient's floor/unit and/or counseling patient: Coding Level of Care Code 05944 SUB INP/OBS CARE 3/50MIN Diagnoses Hypoxia R09.02 Pneumonia J18.9 Laterality: right Lung location: unspecified part of lung Pneumonia type: due to unspecified organism Pulmonary edema J81.1 TIA (transient ischemic attack) G45.9 Anemia D64.9 Elevated troponin R79.89 (2) Pneumonia Laterality: right Lung location: unspecified part of lung Pneumonia type: due to unspecified organism Qualified Code(s): J18.9 - Pneumonia, unspecified organism
--- NOTE | 2024-07-01 10:05 | Podiatry Consultation ---
Date of Consultation July 01, 2024 Assessment & Plan (1) Status post amputation of right foot through metatarsal bone: (2) Wound dehiscence, surgical: Encounter type: initial encounter Qualified Code(s): T81.31XA - Disruption of external operation (surgical) wound, not elsewhere classified, initial encounter Plan Right foot status post partial first ray amputation June 02, 2024: Surgical wound is dehisced distally with stable eschar in place over the wound bed. Sutures removed from proximal incision and this portion of the incision is well- healed. Little concern for any local soft tissue infection however from a foot standpoint would be optimal to discharge on a p.o. antibiotic to complete 2 weeks from the time of admission given that his surgical wound with questionable deep soft tissue and/or bone exposure. -Recommend once daily dressing change to the right foot surgical wound with Betadine wet to dry dressing. -Order lower extremity arterial duplex Doppler to evaluate perfusion to the right foot -Okay to continue weightbearing in postop shoe for short distance and transfer. -Right third toe with no open wound and no signs of local soft tissue infection. Patient has thick irregular dystrophic toenails which are likely overlapping the distal phalanx on AP your x-ray possibly distorting the image. Thank you for consulting podiatry to aid in the care of this patient. Will continue to follow while he remains in house. Patient should schedule follow-up in the wound care center either here at [facility] or in [place] close her to where he lives for continued follow-up after discharge. 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 Patient underwent recent partial first ray amputation right foot by Dr. Dodge June 02, 2024 in [place] and was discharged to rehab facility. Patient's current residence at correctional facility in [place]. Reports show his recovery was going relatively well with improving dyspnea until 06/28/2024 when patient was found to be less responsive with facial droop and arm weakness and sent to the emergency department. By the time patient arrived to the emergency department he longer showing signs of neurodeficits but have become severely hypoxic requiring 50 L / 60% FiO2 high flow nasal cannula. Podiatry consulted to evaluate right foot status post partial first ray amputation and questionable bony erosion at the distal aspect of the distal phalanx of the third toe right foot. Plain film radiographs showing postsurgical changes with amputation to the midshaft of the first metatarsal and questionable erosive changes to the distal aspect of the distal phalanx of the third toe on AP view. Unable to obtain MRI due to pacemaker. Patient continues IV Zosyn Allergies Allergy/AdvReac Type Severity Reaction Status Date / Time No Known Allergies Allergy Verified 06/28/24 16:11 Home Medications Medication Instructions Recorded Confirmed Type acetaminophen 325 mg tablet 650 mg PO Q4H PRN Pain 06/28/24 06/28/24 History (Tylenol) acetaminophen 500 mg tablet 500 mg PO Q4H PRN TEMP >100.5F 06/28/24 06/28/24 History (Tylenol Extra Strength) apixaban 5 mg tablet (Eliquis) 5 mg PO BID 06/28/24 06/28/24 History bisacodyl 10 mg rectal suppository 10 mg IN DAILY PRN Constipation 06/28/24 06/28/24 History calcium carbonate 500 mg PO Q8H PRN Indigestion 06/28/24 06/28/24 History docusate sodium 100 mg capsule 100 mg PO BID PRN Constipation 06/28/24 06/28/24 History furosemide 40 mg tablet (Lasix) 40 mg PO DAILY 06/28/24 06/28/24 History insulin aspart U-100 100 unit/mL 1 sliding scale dose subcut ACHS 06/28/24 06/28/24 History subcutaneous solution insulin glargine 100 unit/mL 10 unit subcut HS 06/28/24 06/28/24 History subcutaneous solution lisinopril 20 mg tablet 20 mg PO DAILY 06/28/24 06/28/24 History ondansetron HCl 4 mg tablet 4 mg PO Q6H PRN NAUSEA/VOMITING 06/28/24 06/28/24 History polyethylene glycol 3350 17 17 g PO DAILY 06/28/24 06/28/24 History gram/dose oral powder (Miralax) polyethylene glycol 3350 17 17 g PO QDL PRN Constipation 06/28/24 06/28/24 History gram/dose oral powder (Miralax) sennosides 8.6 mg tablet (senna) 17.2 mg PO HS 06/28/24 06/28/24 History sennosides 8.6 mg-docusate sodium 1 tab-cap PO QDL PRN Constipation 06/28/24 06/28/24 History 50 mg tablet (Senokot-S) sodium phosphates 19 gram-7 118 ml IN DAILY PRN Constipation 06/28/24 06/28/24 History gram/118 mL enema (Fleet Enema) tamsulosin 0.4 mg capsule (Flomax) 0.4 mg PO DAILY 06/28/24 06/28/24 History Patient History Social History Smoking Status: Never smoker Hx Alcohol Use: No Hx Substance Use: No Preferred Language: Surinamese Communication Ability: Effective [employer] Required: No Beliefs That Will Affect Care: None Current Living Situation: Other Current Living Situation Comment: pt was at [facility] but resides at [facility] Feels Safe at Home: Yes Assistive Devices: Walker and Wheelchair Review of Systems Review of Systems: Patient denies nausea vomiting fever chills. Reports shortness of breath. Denies chest pain. Denies pain in the right foot. Physical Exam Physical Exam: Const: Appears well developed and well nourished. No signs of acute distress present. CV: Extremities: No cyanosis or edema. Capillary refill time is less than 2 seconds all digits of the bilateral foot. Posterior tibial and dorsalis pedis pulses are none palpable bilateral. Lymph: No palpable or visible regional lymphadenopathy. Skin: No scars, rashes, lesions or ecchymosis. Neuro: Sensation intact to light touch in all areas of the foot and ankle. Psych: Mood/Affect: Mood is normal. Affect is normal. Cognition: Orientation is intact to person, place and time. Focused lower extremity musculoskeletal exam: Leg: No pain with compression of the calf muscle. Ankles: Normal to inspection and palpation. No swelling bilaterally. No tenderness bilaterally. Motor strength is intact. Range of motion pain-free and unlimited. Feet: Normal to inspection and palpation. No obvious instability. Motor strength is intact. Range of motion pain-free and unlimited. Status post partial first ray amputation right foot. Proximal extent of the incision equaling approximately one third of the incision length is well-healed with sutures intact. The distal two thirds of the incision has dehisced with dry stable eschar in place over the wound bed. Open wound measures 5 x 1.5 cm. No active drainage. Unable to express any drainage on compression of the foot. Mild CAMI wound erythema without focal edema. No malodor. Wound does not frankly probe or track in any direction there is no frankly exposed bone. Results & Data Vital Signs (Past 12 Hours) Vital Signs Temp Pulse Pulse Resp BP BP Pulse Ox 07/01/24 07:00 36.5 C 90 18 122/78 97 07/01/24 03:00 36.7 C 90 19 125/86 96 06/30/24 22:32 36.7 C 68 19 122/63 96 06/30/24 22:23 79 O2 Del Method O2 Flow Rate 07/01/24 07:00 Nasal Cannula 2 07/01/24 03:00 Nasal Cannula 2 06/30/24 22:32 Nasal Cannula 2 06/30/24 22:23 Laboratory Results WBC 7.52, CRP 7.86, procalcitonin 0.24 Diagnostic Findings Study: Right foot 2 views History: Amputation Comparison: None Findings: There is no acute fracture or dislocation. Amputation with a resection at the proximal diaphysis of the first metatarsal. The overlying soft tissues appear grossly unremarkable. Evidence of resection or erosion at the tuft of the distal phalanx of the third digit. Alignment is anatomic. Joint spaces are well maintained. There is no joint effusion or significant soft tissue swelling. Impression: Amputation changes at the great toe. Distal third toe changes as above. Electronically signed by Chris Roach 06-29-2024 2:10 PM Dictated: 06/29/24 1341 PG Care Time/CCT Total # of Minutes Spent Total Time Spent with Patient: Total time spent is greater than 50% in coordination of care (as documented) at patient's floor/unit and/or counseling patient: [place] [address] INT INP/OBS CARE 2/55MIN Patient Type New Diagnoses Status post amputation of right foot through metatarsal bone Z89.431 Postoperative wound dehiscence, initial encounter T81.31XA Encounter type: initial encounter
--- NOTE | 2024-07-01 19:19 | Ultrasound Report ---
EXAM: US arterial duplex LE RT CLINICAL HISTORY: Dehisced partial first ray amputation with eschar. TECHNIQUE: Ultrasound examination of the right lower extremity arteries with ankle brachial indices was performed in real time and duplex. One or more of the following were performed: spectral analysis, resistive index, waveform analysis, and pulsed Doppler. COMPARISON: None. FINDINGS: Vessel Flow Pattern Right Peak Velocity Right (cm/sec) Common Femoral Artery (SURGICAL ELASTIC KNITTER HAND FRAME) [Tri] [61.7 ] Deep Femoral Artery (DPA) [Tri] [71.6] Superficial Femoral Artery (SFA) [Tri] [70] Popliteal Artery (POP A) [Tri] [44.1] Posterior Tibial Artery (MANAGER OF CARE), proximal [Tri] [92] Posterior Tibial Artery (MANAGER OF CARE), distal [Tri] [99] Dorsalis Pedis Artery (DPA) [Bi] [25.6] Diffuse intima medial complex thickening of the arterial tree of the right lower limb with no significant stenotic lesions noted The traced arteries showing triphasic wave pattern, except distal OPAL and DPA, showed biphasic wave pattern, likely due to hyperemia No elevated velocities No evidence of significant stenosis (50%) or hemodynamically significant lesions. Additional Findings: Mild soft tissue edema noted in the foot IMPRESSION: 1. Hemodynamically insignificant atherosclerotic changes of the right lower limb arterial tree with no significant stenotic lesions or occlusions. 2. Mild soft tissue edema noted in the foot. Electronically signed by Gustabo Carrillo 07-01-2024 7:18 PM
--- NOTE | 2024-07-02 08:30 | Neurology Consultation ---
Date of Consultation July 02, 2024 Assessment & Plan (1) Stroke-like symptom: (2) Acute encephalopathy: Plan This patient presented with "strokelike symptoms" with noted facial droop, weakness, speech problems, and confusion. Unfortunately, there are conflicting reports regarding which side of his face was actually drooping and which arms were actually the weaker. He apparently has had known left upper extremity weakness but I have no details regarding the origin of this. Currently, there is no facial droop and his weakness is diffuse in the limbs to a mild degree with the left upper extremity being a little weaker than the others. In addition, on examination, there is significant distal atrophy in the hands and feet diffusely with absent reflexes and a stocking glove decreased pinprick. 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 This could affect his gait and give him a sensory ataxia. The etiology of the neuropathy is not known but he does have diabetes which could explain this. CT angiography was largely unremarkable. This patient certainly could have had a TIA, but there is no evidence to suggest a stroke currently. Unfortunately, we cannot get an MRI due to his pacemaker. If he did have a stroke it would be small in size and clinically he seems to have improved. He was already on Eliquis. CT scan of the head showed some atrophy, consistent with age, and he does have some small vessel ischemic disease. The patient has significant altered mental status/encephalopathy. I do not know if he has an underlying dementia and the physical problems (hypoxia, pneumonia, etc.) gave him worsening confusion (which is typical). In any event, I think his mental status is better than it was on admission and he does not have any overt speech problem. His mental status should return to baseline over time as his infections and cardiopulmonary issues are treated. Recommendations: 1. PT OT and speech therapy consults increasing activity as able 2. Could consider 81 mg aspirin tablet daily to prevent small vessel ischemic disease but caution with bruising/bleeding since he is already on Eliquis. 3. Unfortunately, we cannot get an MRI of the brain due to his pacemaker 4. I have no further neurologic testing or treatment recommendations to make at this time. 5. Please contact me if I can be of further assistance Overall, I spent a total 90 minutes with this case including review of records, review of CT films, direct evaluation the patient at bedside, report generation, and discussion of the case with the patient and RN at bedside and Dr. Bains, including differential diagnosis and treatment options. History of Present Illness Reason for Consultation: Patient is an 84-year-old, who I was asked to see at the request of Dr. Cisneros, for neurologic evaluation regarding stroke Requesting Physician: Dr. Cisneros Attending Physician: Kirk Bains MD History of Present Illness This patient comes from [facility] and we have no significant information on him prior to his arrival at the emergency room April 30. Apparently, he has a history of heart block, atrial fibrillation, and a pacemaker placed in 2011. He also has a history of hypertension, dyslipidemia, and type 2 diabetes. Prior to admission he was on apixaban 5 mg twice a day, furosemide 40 mg daily, insulin, lisinopril 20 mg daily, and tamsulosin 0.4 mg daily. The patient apparently was admitted to [facility] on June 04 and was put on antibiotics for a right great toe issue. There was concern for osteomyelitis but the patient could not get an MRI. He was treated with vancomycin and on June 08 underwent amputation of the right great toe. Deep wound cultures grew out Klebsiella and Staph epidermidis. He had worsening hypoxia and heart failure and CT angiography of the chest revealed groundglass opacities likely secondary to multifocal pneumonia. He ended up getting intubation for worsening respiratory failure and possible aspiration pneumonia and was eventually transferred to [facility] rehab in [place] June 20. Apparently, the patient had mental status changes around 0800 the morning of June 28. Approximately 1300, he developed difficulty speaking with some left- sided facial droop and right-sided weakness, as reported by EMR. The nursing report apparently had the opposite with right-sided droop and left-sided weakness. He was brought to the [facility] emergency room at 1456 on June 28, with a temperature of 99.0 Fahrenheit, pulse 79, respiratory rate 28, blood pressure 81/33, and O2 saturation 97%. He was given 2 L IV fluids along with sepsis protocol. On examination the patient had a right facial droop and unintelligible speech. The right upper extremity was 5/5 in the left upper extremity was 34 -/5 diffusely. He could not hold either leg up against gravity. There was a concern about stroke but it was felt that he was not a TNK candidate. After the patient had been in the emergency room, and certainly by the time of admission, he had no facial droop or obvious focal weakness except for the left arm. CT scan of the head showed no acute changes. CT angiography of the head was unremarkable. CT angiography of the neck was unremarkable for vascular stenoses but there was some cardiomegaly with interstitial pulmonary edema right greater than left upper lung. There were small pleural effusions and nonspecific mediastinal/hilar lymphadenopathy. Chest x-ray showed cardiomegaly with pulmonary edema and small bilateral pleural effusions. There was concern about pneumonia. CT of the chest without contrast showed multifocal pneumonia superimposed on congestive heart failure. A repeat CT scan of the head June 30 did not show an acute intracranial abnormality. I reviewed these films and there are mild basal ganglia calcifications, generalized atrophy, and old small vessel ischemic disease all likely chronic and consistent with his age. MRI of the brain was attempted but his pacemaker is not compatible. CBC shows mild anemia with normal white count. CHEM profile is largely unremarkable although glucose can be elevated to up to over 300. Today it is 121. Liver profile was unremarkable. C-reactive protein was elevated at 7.86 and troponin was high at 31. Total cholesterol was 120 and triglycerides 67. Procalcitonin was normal at 0.24. Bio fire was completely unremarkable. Blood cultures from June 28 were negative. Currently, the patient has no complaint of pain in his limbs or spine but does have a mild bifrontal aching pain. He gets "dizzy at times but cannot be more specific. He knows that his left arm has been weak but cannot give me any details regarding this. His vision is unremarkable he feels. He denies incontinence of urine. He knows that his balance is not as good as it used to be. He does not think he has any memory or confusion issues. The patient is unaware of where he is or what the problem has. Eventually he figured out that he was in the hospital because of "trouble from his veins". 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, obstetrics, and hormonal) Allergies Allergy/AdvReac Type Severity Reaction Status Date / Time No Known Allergies Allergy Verified 06/28/24 16:11 Home Medications Medication Instructions Recorded Confirmed Type acetaminophen 325 mg tablet 650 mg PO Q4H PRN Pain 06/28/24 06/28/24 History (Tylenol) acetaminophen 500 mg tablet 500 mg PO Q4H PRN TEMP >100.5F 06/28/24 06/28/24 History (Tylenol Extra Strength) apixaban 5 mg tablet (Eliquis) 5 mg PO BID 06/28/24 06/28/24 History bisacodyl 10 mg rectal suppository 10 mg LA DAILY PRN Constipation 06/28/24 06/28/24 History calcium carbonate 500 mg PO Q8H PRN Indigestion 06/28/24 06/28/24 History docusate sodium 100 mg capsule 100 mg PO BID PRN Constipation 06/28/24 06/28/24 History furosemide 40 mg tablet (Lasix) 40 mg PO DAILY 06/28/24 06/28/24 History insulin aspart U-100 100 unit/mL 1 sliding scale dose subcut ACHS 06/28/24 06/28/24 History subcutaneous solution insulin glargine 100 unit/mL 10 unit subcut HS 06/28/24 06/28/24 History subcutaneous solution lisinopril 20 mg tablet 20 mg PO DAILY 06/28/24 06/28/24 History ondansetron HCl 4 mg tablet 4 mg PO Q6H PRN NAUSEA/VOMITING 06/28/24 06/28/24 History polyethylene glycol 3350 17 17 g PO DAILY 06/28/24 06/28/24 History gram/dose oral powder (Miralax) polyethylene glycol 3350 17 17 g PO QDL PRN Constipation 06/28/24 06/28/24 History gram/dose oral powder (Miralax) sennosides 8.6 mg tablet (senna) 17.2 mg PO HS 06/28/24 06/28/24 History sennosides 8.6 mg-docusate sodium 1 tab-cap PO QDL PRN Constipation 06/28/24 06/28/24 History 50 mg tablet (Senokot-S) sodium phosphates 19 gram-7 118 ml LA DAILY PRN Constipation 06/28/24 06/28/24 History gram/118 mL enema (Fleet Enema) tamsulosin 0.4 mg capsule (Flomax) 0.4 mg PO DAILY 06/28/24 06/28/24 History Patient History Medical History Atrial fibrillation Dyslipidemia Diabetes mellitus Hypertension Surgical History Status post cardiac pacemaker procedure Family History Mother , age 82 after a fall No problems noted. Father , age 72 prostate cancer Prostate cancer Social History Smoking Status: Never smoker Hx Alcohol Use: No Hx Substance Use: No Preferred Language: Slovenian Communication Ability: Effective Manager Transmission Required: No Beliefs That Will Affect Care: None Current Living Situation: Other Current Living Situation Comment: pt was at [facility] but resides at [facility] current occupational status: unemployed current occupation: Previous physician Feels Safe at Home: Yes Assistive Devices: Walker and Wheelchair Review of Systems Constitutional: + weakness; no fever and no fatigue Eyes: no diplopia, no eye pain and no worsening vision Ear, Nose, Mouth, Throat: + dizziness; no ear pain, no tinnitus, n o hearing loss, no snoring, no hoarseness and no dysphagia Respiratory: no cough and no dyspnea Cardiovascular: no chest pain, no palpitations and no lightheadedness Gastrointestinal: no abdominal pain, no nausea and no vomiting Musculoskeletal: no back pain, no neck pain, no radicular pain, no joint pain and no myalgia Integumentary: no rash and no lesions Neurologic: + numbness and + headache(s); no gait ab normality, no localized weakness, no generalized weakness, no tingling, no tremor(s), no abnormal movements, no abnormal speech, no confusion and no memory loss Psychiatric: no depression, no irritability, no anxiety, no difficulty concentrating, no confusion and no hallucinations Endocrine: no fatigue and no flushing Hematologic / Lymphatic: no easy bleeding and no easy bruising Allergy / Immunological: no urticaria and no problem reported Exam (Neuro) Physical Exam: The patient is right-handed. The patient is awake, alert, and attentive. Speech is normal without any aphasia or dysarthria. Mood and affect seem normal and appropriate. Person is oriented to his name but not the date or where he is. He does not know that he resides in residential and cannot give me really any details regarding his current situation or past medical history. He can follow one-step commands. Pupils are 3 mm bilaterally and reactive to light. Extraocular eye muscles are intact without nystagmus. Visual acuity and visual cevallos seem normal grossly to confrontation. There are no deficits to sensation in the face in all 3 distributions of the fifth cranial nerve bilaterally. Corneal reflexes are positive bilaterally. Facial strength and symmetry was normal bilaterally. Hearing seems intact grossly to voice and finger rub bilaterally. Palate moves well without asymmetry. There is normal sternocleidomastoid and trapezius strength bilaterally. Tongue is midline with good strength bilaterally. Neck has a full range of motion without discomfort. There are no cervical bruits bilaterally. There are no cranial or ocular bruits. Heart is without murmur. Cervical, thoracic, and lumbar spine are nontender to palpation. Gait was dusted. He had difficulty sitting up on his own and tended to lean to the left when he did sit up. With outstretched arms there is no specific drift but he does have proximal muscle weakness (the arm falls towards the bed). There are no resting, postural, or action tremors. There is decreased facility in both hands left greater than right side with 4+/5 strength diffusely in the right upper extremity and 3-4 minus/5 strength diffusely in the left upper extremity. Motor strength in the lower extremities is 4/5 proximally and 4+/5 distally. There is good tone in the limbs without rigidity or spasticity although there is marked atrophy in the distal hand muscles diffusely. There is atrophy in the distal lower extremities as well. Patient has decreased sensation to pinprick in a stocking glove distribution bilaterally. Reflexes are 0/4 in the biceps, triceps, brachioradialis, quadriceps, and Achilles tendons bilaterally. Toes are downgoing with plantar stimulation on the left, and I could not ascer tain this on the right due to previous surgery and bandages. Results & Data Vital Signs (Past 12 Hours) Vital Signs Temp Pulse Pulse Resp BP BP Pulse Ox 07/02/24 07:15 74 07/02/24 03:05 36.7 C 90 18 121/78 94 07/01/24 23:30 07/01/24 22:59 36.7 C 90 20 120/83 96 07/01/24 21:48 84 07/01/24 20:30 07/01/24 19:59 90 O2 Del Method O2 Flow Rate 07/02/24 07:15 07/02/24 03:05 Nasal Cannula 1 07/01/24 23:30 Room Air 07/01/24 22:59 Nasal Cannula 1 07/01/24 21:48 07/01/24 20:30 Room Air 07/01/24 19:59 PG Care Time/CCT Total # of Minutes Spent Total Time Spent with Patient: Total time spent is greater than 50% in coordination of care (as documented) at patient's floor/unit and/or counseling patient: Coding Level of Care Code 37316 INT INP/OBS CARE 3/75MIN Diagnoses Stroke-like symptom R29.90 Acute encephalopathy G93.40 Time Spent (min) 90
[2024-07-02] MEDS ORDERED: PHARMACY GLYCEMIC MGMT CONSULT PRN (10:18)
[2024-07-02] MEDS: APIXABAN 5 MG TABLET PO ONE (10:33)
[2024-07-02 10:50] LABS: Hematocrit (blood only) 31.8 % (42.0-52.0); Hemoglobin 10.7 g/dl (14.0-18.0); Mean Corpuscular Hemoglobin 28.5 pg (25.0-34.0); Mean Corpuscular Hgb Conc 33.6 g/dL (32.0-36.0); Mean Corpuscular Volume 84.8 fL (80.0-100.0); Mean Platelet Volume 9.3 fL (9.4-12.4); Platelet Count 245 K/uL (130-400); RDW Coefficient of Variation 17.6 % (11.5-14.5); RDW Standard Deviation 54.2 fL (36.4-46.3); Red Blood Count 3.75 M/uL (4.70-6.10); White Blood Count 7.86 K/ul (4.8-10.8)
[2024-07-02 11:08] LABS: Calcium 7.8 mg/dl (8.6-10.3); Magnesium 1.7 mg/dl (1.7-2.4)
[2024-07-02 11:14] LABS: BUN Creatinine Ratio 20.6 (10-20); Creatinine Clr Calc Pharmacy 46.1 ml/min
[2024-07-02 12:19] LABS: Thyroid Stimulating Hormone 4.489 uIu/ml (0.300-4.500)
[2024-07-02] MEDS: LANTUS PER UNIT CHARGE SC ONE (12:41)
[2024-07-02] MEDS: ACETAMINOPHEN 500 MG TAB PO PRN (12:41)
--- NOTE | 2024-07-02 12:50 | Hospitalist Progress Note ---
Date of Service July 02, 2024 Assessment & Plan (1) Hypoxia: (2) Pneumonia: (3) Pulmonary edema: (4) TIA (transient ischemic attack): (5) Anemia: (6) Elevated troponin: Plan 84 yo M with PMHx of HTN, DM II, BPH at rehab after toe amputation in [place] was sent to [facility] on 06/28/24 for the evaluation of facial droop and arm weakness. Recently, while at rehab, pt had some dyspnea, with CXR consistent with CHF. He was being diuresed and doing well until the development of neurologic symptoms. On arrival to [facility], his neurological symptoms had resolved but he was found to have worsening hypoxia requiring HFNC 50L / 60%. # Acute hypoxic respiratory failure, present on admission - NC CT shows pneumonia and pulmonary edema - was on HFNC, titrated down to 1L, cont to wean #Pneumonia - given significant hypoxia and diminished mental state, he was started on Vanc / Zosyn - procal 0.24 (06/28/24) - MRSA neg, Vanc d/c-ed - biofire negative - Continue IV Zosyn (day 4) # Acute diastolic congestive heart failure #Essential hypertension #Atrial fibrillation on apixaban #History of pacemaker - ECHO (06/29/24): LVEF: 55%, possible hypokinesis of the basal inferolateral wall (not fully visualized)mild concentric LVH, severe left atrial dilation, mild pulm HTN, RVSP 39 mmHg - Oxygen requirements have improved, hold IV Lasix given rising BUN/creatinine and blood pressure low - monitor renal function -Resume apixaban 5 mg p.o. twice daily - Hold lisinopril in light of low blood pressure - I's/O monitoring -Daily weights - Monitor vital signs #Right foot wound - XR showing post surgical changes vs erosion - Wound care following the patient - Status post partial first ray amputation on June 02, 2024 - Patient was seen by junior media buyer Dr. Addison Dillon: As per podiatry, okay to continue weightbearing in postop shoe for short distance and transfer. Recommend once daily dressing changes to the right foot surgical wound with Betadine wet-to-dry dressings. -Podiatry has recommended lower extremity arterial duplex Doppler to evaluate perfusion to right foot - Podiatry has recommended to discharge patient on p.o. antibiotics to complete 2 weeks from time of admission given that his surgical wound with questionable deep tissue and/or bone exposure. #Acute encephalopathy, likely metabolic #Suspected TIA - unable to obtain MRI due to PPM (no further information available about his PPM) - initial CT head without acute intracranial abnormalities, repeat NCCT head also neg - [facility] eval recs regular texture diet with aspiration precautions as indicated -LDL is 69 - PT / OT saw patient in rehab on discharge - Neurology Dr. Rubio saw the patient and recommended that medical team could consider 81 mg of aspirin daily to prevent small vessel ischemic disease but caution with bruising/bleeding since patient is already on Eliquis: Will start patient on aspirin 81 mg daily and monitor - B12 is 899 -TSH is 4.489 #Insulin-dependent type 2 diabetes mellitus - A1c: 8.8 - Pharmacy consult for glycemic control CODE STATUS: Full code DVT prophylaxis: Patient on apixaban Discharge planning back to [facility] rehab would likely in the next 24 to 48 hours based on BRENDA reports and clinical improvement Admission and Anticipated Discharge Date Admission Date: June 28, 2024 Subjective Patient seen and examined Labs reviewed Patient denies any chest pain or shortness of breath He denies any nausea, vomiting or abdominal pain Physical Exam Physical Exam: General: No acute distress Psych: Awake and alert HEENT: Anicteric sclera, moist oral mucosa CVS: Regular rate and rhythm Lungs: Bilateral air entry, no wheezing noted Abdomen: Soft, nontender, no rebound, no guarding Ext: Right toe in dressing Results & Data Results & Data Vital Signs (Past 12 Hours) Vital Signs Temp Pulse Pulse Resp BP Pulse Ox O2 Del Method 07/02/24 10:45 36.4 C L 77 20 96/60 L 96 Nasal Cannula 07/02/24 09:57 Nasal Cannula 07/02/24 08:14 36.4 C L 64 20 122/55 L 93 Nasal Cannula 07/02/24 07:15 74 07/02/24 03:05 36.7 C 90 18 121/78 94 Nasal Cannula O2 Flow Rate 07/02/24 10:45 1 07/02/24 09:57 1 07/02/24 08:14 1 07/02/24 07:15 07/02/24 03:05 1 Laboratory Results Laboratory Results - last 24 hr 07/01/24 07/01/24 07/01/24 16:05 16:25 20:13 WBC RBC Hgb Hct MCV MCH MCHC RDW Std Deviation RDW Coeff of Asif Plt Count MPV Sodium Potassium Chloride Carbon Dioxide Anion Gap BUN Creatinine Est Cr Clr Drug Dosing eGFR BUN/Creatinine Ratio Glucose POC Glucose 125 H 119 H 277 H Calcium Magnesium Iron TIBC Transferrin Transferrin % Sat Vitamin B12 TSH 07/02/24 07/02/24 07/02/24 07:23 10:34 11:21 WBC 7.86 RBC 3.75 L Hgb 10.7 L Hct 31.8 L MCV 84.8 MCH 28.5 MCHC 33.6 RDW Std Deviation 54.2 H RDW Coeff of Asif 17.6 H Plt Count 245 MPV 9.3 L Sodium 134 L Potassium 3.0 L Chloride 98 Carbon Dioxide 30 Anion Gap 6 BUN 27 H Creatinine 1.31 Est Cr Clr Drug Dosing 46.1 eGFR 53.67 BUN/Creatinine Ratio 20.6 H Glucose 213 H POC Glucose 121 H 201 H Calcium 7.8 L Magnesium 1.7 Iron 41 TIBC 153 L Transferrin 109 L Transferrin % Sat 27 Vitamin B12 899 TSH 4.489 PG Care Time/CCT Total # of Minutes Spent Total Time Spent with Patient: Total time spent is greater than 50% in coordination of care (as documented) at patient's floor/unit and/or counseling patient: Coding Level of Care Code 34276 SUB INP/OBS CARE 2/35MIN Diagnoses Hypoxia R09.02 Pneumonia J18.9 Laterality: right Lung location: unspecified part of lung Pneumonia type: due to unspecified organism Pulmonary edema J81.1 TIA (transient ischemic attack) G45.9 Anemia D64.9 Elevated troponin R79.89 (2) Pneumonia Laterality: right Lung location: unspecified part of lung Pneumonia type: due to unspecified organism Qualified Code(s): J18.9 - Pneumonia, unspecified organism
--- NOTE | 2024-07-02 13:59 | Pharmacy Report ---
Pharmacy Glycemic Short Note 2 - Date of Service July 02, 2024 - Glycemic Short BSG Results (Last 24 hours): 07/01/24 07/01/24 07/01/24 16:05 16:25 20:13 Glucose POC Glucose 125 H 119 H 277 H 07/02/24 07/02/24 07/02/24 07:23 10:34 11:21 Glucose 213 H POC Glucose 121 H 201 H OUTPATIENT ANTIDIABETIC REGIMEN: * Lantus 10 units SC HS * Novolog ACHS HbA1c: 8.8% (06/29/24) ASSESSMENT: * KG is an 84 year old male who presented to ED with stroke-like symptoms * Pharmacy consulted for glycemic management today due to intermittent hyperglycemia * Will be conservative with initial insulin regimen given lability so far * Blood sugars ranging 121-277 mg/dL PLAN FOR INPATIENT GLYCEMIC CONTROL: * Basal insulin * Lantus 5 units SQ x 1 this afternoon * Lantus 0-5 units SC HS (see EHR for details) * Reassess in AM * Bolus insulin * NovoLog per scale ACHS or Q6hrs while NPO * Goal Range: Low 100 mg/dL - High 150 mg/dL * Correction Factor: 35 mg/dL/unit * Nutritional / Prandial insulin per carb ratio of 1 unit per 8 grams CHO consumed
[2024-07-02] MEDS: POTASSIUM CHLORIDE CRTAB 20 MEQ TABCR PO STA (16:45)
[2024-07-02] MEDS: POTASSIUM CHLORIDE CRTAB 20 MEQ TABCR PO ONE (20:54)
[2024-07-02] MEDS: LANTUS PER UNIT CHARGE SC SCH (20:55)
[2024-07-02] MEDS: APIXABAN 5 MG TABLET PO SCH (20:56)
[2024-07-02] MEDS: MAGNESIUM OXIDE 400 MG TAB PO SCH (20:56)
[2024-07-02] MEDS ORDERED: LANTUS PER UNIT CHARGE SC SCH (21:00)
[2024-07-02] MEDS: TAMSULOSIN HCL 0.4 MG CAP PO SCH (21:45)
[2024-07-03] MEDS: INSULIN ASPART PER UNIT CHARGE SC SCH (00:02)
[2024-07-03 07:07] LABS: Potassium 3.8 mmol/L (3.5-5.1)
[2024-07-03 07:08] LABS: BUN Creatinine Ratio 23.4 (10-20); Creatinine Clr Calc Pharmacy 56.4 ml/min; Magnesium 1.8 mg/dl (1.7-2.4)
[2024-07-03] MEDS: POTASSIUM CHLORIDE CRTAB 20 MEQ TABCR PO STA (09:16)
[2024-07-03] MEDS: ASPIRIN 81 MG ECTAB PO SCH (09:43)
--- NOTE | 2024-07-03 10:22 | Pharmacy Report ---
- Date of Service July 03, 2024 - Pharmacy CVA/TIA Medication Review Medications to Prevent Stroke handout has been added to the patients discharge packet. Antiplatelet(s) * Aspirin 81 mg PO daily Cholesterol * High intensity statin deferred due to age >75 DVT Prophylaxis * therapeutic anticoagulation w/ apixaban Therapeutic Anticoagulation * Hx Afib/Aflutter noted, and patient is currently receiving apixaban Type 2 Diabetes * Patient has T2DM, but per Dr. Bains, a diabetes medication with proven CVD benefit will be deferred to their outpatient provider due to familiarity with risks/benefits of such therapies. "Medications to prevent stroke" handout has already been added to the patient's discharge packet, which instructs the patient to follow up with their outpatient provider to evaluate which diabetes medication with proven CVD benefit is best for them
--- NOTE | 2024-07-03 13:48 | Discharge Summary ---
Discharge Summary Date of Service July 03, 2024 Principal Dx & Hospital Course #1 = Principal Diagnosis (1) Hypoxia: (2) Pneumonia: (3) Pulmonary edema: (4) TIA (transient ischemic attack): (5) Elevated troponin: Plan 84 yo M with PMHx of HTN, DM II, BPH at rehab after toe amputation in [place] was sent to [facility] on 06/28/24 for the evaluation of facial droop and arm weakness. Recently, while at rehab, pt had some dyspnea, with CXR consistent with CHF. He was being diuresed and doing well until the development of neurologic symptoms. On arrival to [facility], his neurological symptoms had resolved but he was found to have worsening hypoxia requiring HFNC 50L / 60%. # Acute hypoxic respiratory failure, present on admission - NC CT shows pneumonia and pulmonary edema - was on HFNC, titrated down to 1L, cont to wean: He is currently saturating well on room air #Pneumonia - given significant hypoxia and diminished mental state, he was started on Vanc / Zosyn - procal 0.24 (06/28/24) - MRSA neg, Vanc d/c-ed - biofire negative - Patient is finished 5 days of IV Zosyn # Acute diastolic congestive heart failure with preserved ejection fraction #Essential hypertension #Atrial fibrillation on apixaban #History of pacemaker #Elevated troponin, likely demand ischemia in light of CHF - ECHO (06/29/24): LVEF: 55%, possible hypokinesis of the basal inferolateral wall (not fully visualized)mild concentric LVH, severe left atrial dilation, mild pulm HTN, RVSP 39 mmHg - Oxygen requirements have improved - Patient was diuresed with IV Lasix 20 mg twice daily and he has now been switched to oral Bumex 1 mg p.o. 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 Addison Dillon: As per podiatry, okay to continue weightbearing in postop shoe for short distance and transfer. Recommend once daily dressing changes to the right foot surgical wound with Betadine wet-to-dry dressings. -Podiatry recommended lower extremity arterial duplex Doppler to evaluate perfusion to right foot: Done on 07/01/2024: Results show hemodynamically insignificant atherosclerotic changes of the right lower limb arterial tree with no significant stenotic lesions or occlusions. - Podiatry has recommended to discharge patient on p.o. antibiotics to complete 2 weeks from time of admission given that his surgical wound with questionable deep tissue and/or bone exposure. He was treated with IV Zosyn for 5 days and has been switched to oral Augmentin 875 mg twice daily for 9 more days to finish 14-day course per podiatry recommendation. Patient will need follow-up with podiatry as outpatient #Acute encephalopathy, likely metabolic #Suspected TIA - unable to obtain MRI due to PPM (no further information available about his PPM) - initial CT head without acute intracranial abnormalities, repeat NCCT head also neg - MEDICAL TECHNICIAN eval recs regular texture diet with aspiration precautions as indicated -LDL is 69 - PT / OT saw patient in rehab on discharge - Neurology Dr. Rubio saw the patient and recommended that medical team could consider 81 mg of aspirin daily to prevent small vessel ischemic disease but caution with bruising/bleeding since patient is already on Eliquis: Will start patient on aspirin 81 mg daily and monitor - B12 is 899 -TSH is 4.489 - Patient will need to follow-up with neurology as outpatient #Insulin-dependent type 2 diabetes mellitus - A1c: 8.8 - Lantus 10 units subcutaneous nightly, continue ISS - Outpatient follow-up with PCP #BPH Continue Flomax 0.4 mg nightly Patient seen and examined. He is stable for discharge to acute rehab. He will need follow-up with neurology and podiatry as outpatient. Admission HPI Per Admitting Provider no HPI or review of systems is obtainable from patient, history obtained from his physician at rehab, as well as from the ER physician. Physician at rehab notes that he had been sent there after a toe amputation in [place]. Patient was recovering fairly well did have a degree of dyspnea and findings including chest x-ray consistent with CHFshe was giving him diuresis, patient was showing slow but steady improvement, and then today he was less responsive with a facial droop and arm weaknesswith that he was sent to the ER, on arrival he no longer showed focal neurodeficits, but at the same time he became progressively more hypoxic eventually stabilizing on 50 L / 60% FiO2 high flow nasal cannula. Patient himself responds somewhat to voice and stimuli grunts a little but is not really at all communicative or aware. Discharge Exam General: No acute distress Psych: Awake and alert HEENT: Anicteric sclera, moist oral mucosa CVS: Regular rate and rhythm Lungs: Bilateral air entry, no wheezing noted Abdomen: Soft, nontender, no rebound, no guarding Ext: Right toe in dressing Discharge Plan Discharge Items Patient Disposition: Transfer Inpatient Rehab Fac Reason For Visit: HYPOXIA Discharge Diagnosis: #Pneumonia # Acute diastolic congestive heart failure #Essential hypertension #Atrial fibrillation on apixaban #History of pacemaker #Right foot wound #Acute encephalopathy, likely metabolic #Suspected TIA #Insulin-dependent type 2 diabetes mellitus #BPH Activity: As commented below Activity Comment: as tolerated with assistance Non-emergency contact: Primary Care Provider Call non-emergency contact if: you have any medication questions, your symptoms worsen, your pain is worsening, you have a fever, your wound has increased r edness, your wound has increased drainage and your wound pain has increased Follow-up/Referrals: Valentin JACOBO [Primary Care Provider] - Diet: Carb Consistent or DM2 and Heart Healthy Addtl Attending Provider Instructions: DISCHARGE INSTRUCTION TO PATIENT/FAMILY/SNF/Acute Rehab: Follow-up with your primary care provider within 1 week regarding: Posthospital discharge, medication review, medication refills and follow-up on all your medical problems Please take all your discharge medications, discharge information and discharge instructions to all your doctors appointments. Avoid all NSAIDs including ibuprofen, Motrin, Advil, Aleve, naproxen, meloxicam, Toradol, diclofenac Please follow-up with podiatry as outpatient in 1 to 2 weeks time Out of bed to chair for all meals, no meals in bed. Aspiration precautions at all times Daily weights Please monitor intake/output daily HOLD LISINOPRIL FOR SBP <110 Follow-up with neurologist of your choice in 3 to 4 weeks time as outpatient regarding TIA Podiatry has recommended oral antibiotics to complete a 2-week course from time of admission. You have finished 5 days of IV Zosyn. You will be on oral Augmentin 875 mg twice daily for 9 more days to finish a total of 14 days of antibiotics. Instructions per herbarium worker Dr. Addison Rock are as follows: Okay to continue weightbearing in postop shoe for short distance and transfer. Recommend once daily dressing changes to the right foot surgical wound with Betadine wet-to-dry dressings. Labs at Acute Rehab on Monday07/05/24: CBC with diff, CMP, Mg, CRP Addtl Sap Bpc Architect Provider Instructions: Instructions per herbarium worker Dr. Addison Rock are as follows: Okay to continue weightbearing in postop shoe for short distance and transfer. Recommend once daily dressing changes to the right foot surgical wound with Betadine wet-to-dry dressings. Pending Studies at Discharge: No Stand-Alone Forms: My [facility] [employer], Medications to Prevent Stroke Skilled Items Patient informed of condition?: Yes DNR: No Discharge Level of Care: Acute rehab Communicable Disease: No Discharge Prognosis: Stable Lines: None Urinary Catheter: No Medications and DC Order Prescriptions: New aspirin 81 mg Tablet,Delayed Release (Dr/Ec) 81 mg PO QAM Qty: 7 0RF bumetanide 1 mg Tablet 1 mg PO QAM Qty: 7 0RF amoxicillin-pot clavulanate 875-125 mg Tablet 1 tab PO BIDM 9 Days Qty: 18 0RF Rx Instructions: for 9 days Continued sennosides [senna] 8.6 mg Tablet 17.2 mg PO HS insulin glargine 100 unit/mL Solution 10 unit SUBCUT HS ondansetron HCl [Zofran] 4 mg Tablet 4 mg PO Q6H PRN (Reason: NAUSEA/VOMITING) sennosides-docusate sodium [Senokot-S] 8.6-50 mg Tablet 1 tab-cap PO QDL PRN (Reason: Constipation) tamsulosin [Flomax] 0.4 mg Capsule 0.4 mg PO DAILY insulin aspart U-100 100 unit/mL Solution 1 sliding scale dose SUBCUT ACHS Rx Instructions: HHJ30-501=9 UNITS, 131-180=2 UNITS, 181-240=4 UNITS, 241-300=6 UNITS, 310- 350=8 UNITS, 351-400=10 UNITS, GREATER THAN 400=12 UNITS, CALL bisacodyl 10 mg Suppository 10 mg AK DAILY PRN (Reason: Constipation) Fleet Enema 19-7 gram/118 mL Enema 118 ml AK DAILY PRN (Reason: Constipation) docusate sodium 100 mg Capsule 100 mg PO BID PRN (Reason: Constipation) calcium carbonate [Tums 500] 500 mg calcium (1,250 mg) Tablet,Chewable 500 mg PO Q8H PRN (Reason: Indigestion) polyethylene glycol 3350 [Miralax] 17 gram/dose Powder 17 g PO DAILY polyethylene glycol 3350 [Miralax] 17 gram/dose Powder 17 g PO QDL PRN (Reason: Constipation) Eliquis 5 mg Tablet 5 mg PO BID Changed acetaminophen [Tylenol] 325 mg Tablet 1,000 mg PO TID PRN (Reason: Pain) Qty: 0 0RF lisinopril 20 mg Tablet 10 mg PO DAILY Qty: 0 0RF Rx Instructions: HOLD FOR SBP <110 Discontinued furosemide [Lasix] 40 mg Tablet 40 mg PO DAILY acetaminophen [Tylenol Extra Strength] 500 mg Tablet 500 mg PO Q4H PRN (Reason: TEMP >100.5F) Discharge Orders: Discharge Order- CHF (Routine); Ordered 07/03/24 Ordered By: Kirk Bains Admission Data Admit Date/Time: 06/28/24 19:19 Attending Provider: Kirk Bains Admit Provider: David Gardiner Primary Care Provider: Valentin JACOBO Other Providers: David Gardiner; [facility]; Addison Dillon; Milton [facility] Stay Data Consultations 06/28/24 16:07 ED Decision to Admit Stat 06/30/24 10:19 Consult Podiatry Routine 07/01/24 14:03 Consult Neurology Routine Procedures Performed Laboratory Results - last 48 hr 07/01/24 07/01/24 07/01/24 16:05 16:25 20:13 WBC RBC Hgb Hct MCV MCH MCHC RDW Std Deviation RDW Coeff of Asif Plt Count MPV Sodium Potassium Chloride Carbon Dioxide Anion Gap BUN Creatinine Est Cr Clr Drug Dosing eGFR BUN/Creatinine Ratio Glucose POC Glucose 125 H 119 H 277 H Calcium Magnesium Iron TIBC Transferrin Transferrin % Sat B-Natriuretic Peptide Vitamin B12 TSH 07/02/24 07/02/24 07/02/24 07:23 10:34 11:21 WBC 7.86 RBC 3.75 L Hgb 10.7 L Hct 31.8 L MCV 84.8 MCH 28.5 MCHC 33.6 RDW Std Deviation 54.2 H RDW Coeff of Asif 17.6 H Plt Count 245 MPV 9.3 L Sodium 134 L Potassium 3.0 L Chloride 98 Carbon Dioxide 30 Anion Gap 6 BUN 27 H Creatinine 1.31 Est Cr Clr Drug Dosing 46.1 eGFR 53.67 BUN/Creatinine Ratio 20.6 H Glucose 213 H POC Glucose 121 H 201 H Calcium 7.8 L Magnesium 1.7 Iron 41 TIBC 153 L Transferrin 109 L Transferrin % Sat 27 B-Natriuretic Peptide Vitamin B12 899 TSH 4.489 07/02/24 07/02/24 07/02/24 16:20 20:01 23:58 WBC RBC Hgb Hct MCV MCH MCHC RDW Std Deviation RDW Coeff of Asif Plt Count MPV Sodium Potassium Chloride Carbon Dioxide Anion Gap BUN Creatinine Est Cr Clr Drug Dosing eGFR BUN/Creatinine Ratio Glucose POC Glucose 302 H* 351 H* 93 Calcium Magnesium Iron TIBC Transferrin Transferrin % Sat B-Natriuretic Peptide Vitamin B12 TSH 07/03/24 07/03/24 07/03/24 03:56 06:17 07:21 WBC RBC Hgb Hct MCV MCH MCHC RDW Std Deviation RDW Coeff of Asif Plt Count MPV Sodium 137 Potassium 3.8 D Chloride 102 Carbon Dioxide 32 Anion Gap 3 BUN 25 H Creatinine 1.07 Est Cr Clr Drug Dosing 56.4 eGFR 68.43 BUN/Creatinine Ratio 23.4 H Glucose 97 POC Glucose 110 H 118 H Calcium 8.0 L Magnesium 1.8 Iron TIBC Transferrin Transferrin % Sat B-Natriuretic Peptide 206 H Vitamin B12 TSH 07/03/24 11:22 WBC RBC Hgb Hct MCV MCH MCHC RDW Std Deviation RDW Coeff of Asif Plt Count MPV Sodium Potassium Chloride Carbon Dioxide Anion Gap BUN Creatinine Est Cr Clr Drug Dosing eGFR BUN/Creatinine Ratio Glucose POC Glucose 166 H Calcium Magnesium Iron TIBC Transferrin Transferrin % Sat B-Natriuretic Peptide Vitamin B12 TSH Diagnostic Imagining Performed 06/28/24 14:35 CT angio head w con Stat CT angio neck with con Stat CT head/brain wo con Stat 06/28/24 17:03 CT chest diagnostic wo con Stat 06/30/24 10:09 CT head/brain wo con Urgent 07/01/24 13:11 US arterial duplex LE RT Routine Head CT 06/28/24 14:35 CT SCAN OF THE BRAIN WITHOUT IV CONTRAST CLINICAL HISTORY: Neuro deficit, acute stroke suspected. COMPARISON STUDY: None TECHNIQUE: Unenhanced axial CT scan of the brain was performed from the vertex to the skull base. A dose lowering technique was utilized adhering to the principles of ALARA. FINDINGS: This exam is moderately compromised by motion artifact. No acute intracranial hemorrhage, midline shift or mass effect is present. Ventricular system is unremarkable. There is mild atrophy. Basal cisterns are patent. There are no extra axial collections. There are no findings to suggest acute dural sinus thrombosis or acute territorial infarct by CT. CTA of the head will be reported separately. IMPRESSION: No acute intracranial findings. Moderate motion artifact. ACT 112: Negative or not required by law. Electronically signed by: Sotero Oseguera M.D. 06/28/2024 2:56 PM Head CTA 06/28/24 14:35 CT angio head w con CLINICAL HISTORY: 84 years-old Male with neuro deficit, acute stroke suspected. Acute stroke like symptoms COMPARISON STUDY: Head CT of same day TECHNIQUE: Following the IV administration of 118 cc of Optiray, CT angiogram of the brain was performed from the skull base to the vertex. Images are reviewed in the axial, sagittal, and coronal planes. 3-D MIPS images are created and assessed. IV contrast was administered without complication. All measurements were obtained according to NASCET criteria. A dose lowering technique was utilized adhering to the principles of ALARA. CT DOSE: 2128.03 mGy.cm FINDINGS: CT BRAIN: Dictated separately. Involutional changes with chronic microvascular ischemic disease. CT ANGIOGRAM OF THE BRAIN: The imaged bilateral internal carotid arteries are patent. The bilateral anterior and middle cerebral arteries are also patent. The vertebrobasilar system and posterior cerebral arteries are widely patent. There is no aneurysm, high-grade stenosis, or proximal branch occlusion identified. Dural sinuses appear patent. IMPRESSION: Unremarkable CTA of the head. ACT 112: Negative or not required by law. The above report was generated using voice recognition software. It may contain grammatical, syntax or spelling errors. Electronically signed by: Benson Kaufman M.D. 06/28/2024 3:00 PM Neck CTA 06/28/24 14:35 CT angio neck with con CLINICAL HISTORY: 84 years-old Male with neuro deficit, acute stroke suspected. Acute stroke like symptoms COMPARISON STUDY: CTA head of same day TECHNIQUE: Following the IV administration of 118 of Optiray, CT angiogram of the neck was performed from the aortic arch to the skull base. Images are reviewed in the axial, sagittal, and coronal planes. 3-D MIPS images are created and assessed. IV contrast was administered without complication. All measurements were calculated based on NASCET criteria. A dose lowering technique was utilized adhering to the principles of ALARA. FINDINGS: Cardiomegaly. Left subclavian pacer. Small pleural effusions. Intralobular septal thickening with groundglass densities and partially imaged right lung predominant consolidation. Three-vessel morphology of the thoracic aortic arch. Patency of the innominate and imaged subclavian arteries. The common carotid arteries are widely patent. The internal carotid arteries are also patent. The vertebral arteries appear patent. There is however moderate stenosis involving the left V2 segment at the level of C6-C7 secondary to spondylitic spurring of the spine. Unremarkable soft tissues. No acute fracture. Degenerative changes of the cervical spine. Mild mediastinal and hilar lymphadenopathy. IMPRESSION: 1. Unremarkable CTA of the neck. 2. Cardiomegaly with interstitial pulmonary edema and partially imaged right greater than left upper lung opacities suggestive of asymmetric alveolar pulmonary edema versus pneumonia. 3. Small pleural effusions. 4. Nonspecific mediastinal and hilar lymphadenopathy. ACT 112: Negative or not required by law. The above report was generated using voice recognition software. It may contain grammatical, syntax or spelling errors. Electronically signed by: Benson Kaufman M.D. 06/28/2024 3:00 PM Chest X-Ray 06/28/24 15:00 XR chest 1V portable CLINICAL HISTORY: Altered mental status. Stroke alert. COMPARISON STUDY: No previous studies for comparison. FINDINGS: Left subclavian pacer is in place. There is no pneumothorax. There are small bilateral pleural effusions. Interstitial thickening is noted. Bilateral airspace opacities are greater within the right lung. The heart is moderately enlarged. IMPRESSION: 1. Cardiomegaly with interstitial pulmonary edema and small bilateral pleural effusions. 2. Alveolar opacities, greater within the right lung. The findings favor alveolar pulmonary edema however superimposed pneumonia could appear similar. Radiographic follow-up is recommended. ACT 112: Negative or not required by law. Electronically signed by: Sotero Oseguera M.D. 06/28/2024 3:[address] 06/28/24 17:03 CT CHEST WITHOUT CONTRAST: HISTORY: Shortness of breath TECHNIQUE: CT of the chest was obtained without intravenous contrast. Coronal and sagittal reformats were created. COMPARISON: None FINDINGS: LOWER NECK: Normal thyroid. LYMPH NODES: Mildly prominent mediastinal hilar lymph nodes are nonspecific but are likely reactionary in nature given the pulmonary findings as below. CARDIOVASCULAR: Cardiac size is enlarged. Mild coronary and valvular artery calcifications are noted. No aortic aneurysm. LUNGS: The trachea and central bronchi are widely patent. No focal confluent infiltrates are seen. There are no pulmonary nodules. PLEURA: Right larger than left small pleural fluids. Interstitial pulmonary edema and chronic interstitial changes of the lungs. There are multifocal infiltrates of the lungs with right lung more involved than the left with infiltrates identified all lobes of the lungs. There is no pneumothorax. No suspicious pulmonary nodule is identified however evaluation is limited due to extensive pleural parenchymal process. UPPER ABDOMEN: No acute findings. OSSEOUS STRUCTURES: No acute findings IMPRESSION: Multifocal pneumonia superimposed on CHF. Electronically signed by Virgilio Ramos 06-28-2024 6:06 PM Foot X-Ray 06/29/24 13:37 Study: Right foot 2 views History: Amputation Comparison: None Findings: There is no acute fracture or dislocation. Amputation with a resection at the proximal diaphysis of the first metatarsal. The overlying soft tissues appear grossly unremarkable. Evidence of resection or erosion at the tuft of the distal phalanx of the third digit. Alignment is anatomic. Joint spaces are well maintained. There is no joint effusion or significant soft tissue swelling. Impression: Amputation changes at the great toe. Distal third toe changes as above. Electronically signed by Chris Roach 06-29-2024 2:[address] 06/30/24 10:09 CT head/brain wo con CLINICAL HISTORY: 84 years-old Male with stroke-like sxs, unable to obtain MRI. Acute stroke like symptoms TECHNIQUE: Multiple axial CT images of the head were obtained without contrast. A dose lowering technique was utilized adhering to the principles of ALARA. CT DOSE: 1100.35 mGy.cm COMPARISON: 06/28/2024 FINDINGS: No acute intracranial hemorrhage, midline shift, intracranial mass, hydrocephalus, territorial ischemia or abnormal extra-axial collection. Involutional changes with probable chronic microvascular ischemic disease. Senescent calcifications of the basal ganglia. The calvarium is intact. The paranasal sinuses, mastoid air cells, and middle ear cavities are clear. IMPRESSION: No acute intracranial abnormality. ACT 112: Negative or not required by law. The above report was generated using voice recognition software. It may contain grammatical, syntax or spelling errors. Electronically signed by: Benson Kaufman M.D. 06/30/2024 11:03 AM Duplex Scan Lower Extremity Artery 07/01/24 13:11 EXAM: US arterial duplex LE RT CLINICAL HISTORY: Dehisced partial first ray amputation with eschar. TECHNIQUE: Ultrasound examination of the right lower extremity arteries with ankle brachial indices was performed in real time and duplex. One or more of the following were performed: spectral analysis, resistive index, waveform analysis, and pulsed Doppler. COMPARISON: None. FINDINGS: Vessel Flow Pattern Right Peak Velocity Right (cm/sec) Common Femoral Artery (RISK ASSESSOR) [Tri] [61.7 ] Deep Femoral Artery (DPA) [Tri] [71.6] Superficial Femoral Artery (SFA) [Tri] [70] Popliteal Artery (POP A) [Tri] [44.1] Posterior Tibial Artery (ELECTRICITY TRADER), proximal [Tri] [92] Posterior Tibial Artery (ELECTRICITY TRADER), distal [Tri] [99] Dorsalis Pedis Artery (DPA) [Bi] [25.6] Diffuse intima medial complex thickening of the arterial tree of the right lower limb with no significant stenotic lesions noted The traced arteries showing triphasic wave pattern, except distal OPAL and DPA, showed biphasic wave pattern, likely due to hyperemia No elevated velocities No evidence of significant stenosis (50%) or hemodynamically significant lesions. Additional Findings: Mild soft tissue edema noted in the foot IMPRESSION: 1. Hemodynamically insignificant atherosclerotic changes of the right lower limb arterial tree with no significant stenotic lesions or occlusions. 2. Mild soft tissue edema noted in the foot. Electronically signed by Gustabo Carrillo 07-01-2024 7:18 PM Pending Results Patient Have Any Pending Studies at Discharge: No Discharge Instructions Given to Patient (Per Discharging Provider) DISCHARGE INSTRUCTION TO PATIENT/FAMILY/SNF/Acute Rehab: Follow-up with your primary care provider within 1 week regarding: Posthospital discharge, medication review, medication refills and follow-up on all your medical problems Please take all your discharge medications, discharge information and discharge instructions to all your doctors appointments. Avoid all NSAIDs including ibuprofen, Motrin, Advil, Aleve, naproxen, meloxicam, Toradol, diclofenac Please follow-up with podiatry as outpatient in 1 to 2 weeks time Out of bed to chair for all meals, no meals in bed. Aspiration precautions at all times Daily weights Please monitor intake/output daily HOLD LISINOPRIL FOR SBP <110 Follow-up with neurologist of your choice in 3 to 4 weeks time as outpatient regarding TIA Podiatry has recommended oral antibiotics to complete a 2-week course from time of admission. You have finished 5 days of IV Zosyn. You will be on oral Augmentin 875 mg twice daily for 9 more days to finish a total of 14 days of antibiotics. Instructions per herbarium worker Dr. Addison Rock are as follows: Okay to continue weightbearing in postop shoe for short distance and transfer. Recommend once daily dressing changes to the right foot surgical wound with Betadine wet-to-dry dressings. Labs at Acute Rehab on Monday07/05/24: CBC with diff, CMP, Mg, CRP Total Time Total Time Spent Total Time Spent (In Minutes): 40 Coding Level of Care Code 98980 INP/OBS DISCH >30 MIN Diagnoses Hypoxia R09.02 Pneumonia J18.9 Laterality: right Lung location: unspecified part of lung Pneumonia type: due to unspecified organism Pulmonary edema J81.1 TIA (transient ischemic attack) G45.9 Elevated troponin R79.89
[2024-07-03] MEDS ORDERED: AMOXICILLIN/CLAVULANATE 875 MG TAB PO SCH (17:00)
[2024-07-04] MEDS ORDERED: BUMETANIDE 1 MG TAB PO SCH (09:00)
== END 2024-07-03 17:09 | DRG 193 ==
LOC: ED 14:37 → 2S 19:19 → SUATTDRO 19:19 → 2S 21:26